=== PATIENT | female | born 1945 | race Caucasian/White ===

== ENCOUNTER 2017-03-15 17:04 | Inpatient (IN) ==
[2017-03-15] MEDS ORDERED: Ipratropium/Albuterol Neb 3 ML IH ONE (18:17)
[2017-03-15] MEDS ORDERED: methylPREDNISolone 125 MG/2 ML VIAL IVP ONE (18:18)
--- NOTE | 2017-03-15 18:20 | Emergency Department Note ---
Disposition Clinical Impression: Hospital acquired PNA, Congestive heart failure, Elevated troponin Disposition: Admitted As Inpatient Condition: Fair General Adult HPI - General Chief complaint: ED Shortness of Breath/Dyspnea Stated complaint: Pneumonia/GUSTAVO Time Seen by Provider: 03/15/17 18:15 Source: patient, family Limitations: no limitations - History of Present Illness Pain Scale: 8 - Related Data Home Medications Medication Instructions Recorded Confirmed OxyCODONE Immed Rel [Roxicodone 15 15 mg PO Q4H PRN 07/23/15 03/15/17 MG] Albuterol Sulfate [Proair Hfa] 2 puff IH Q4H PRN 03/15/17 03/15/17 Atorvastatin [Lipitor] 40 mg PO HS 03/15/17 03/15/17 Citalopram Hydrobromide [Celexa] 40 mg PO DAILY 03/15/17 03/15/17 Ergocalciferol (VITAMIN D2) 50,000 unit PO TU 03/15/17 03/15/17 [Vitamin D2] Famotidine [Heartburn Prevention] 20 mg PO HS 03/15/17 03/15/17 LORazepam [Ativan] 0.25 - 0.5 mg PO BID PRN 03/15/17 03/15/17 Levothyroxine [Synthroid] 150 mcg PO QAM 03/15/17 03/15/17 Lisinopril [Zestril] 10 mg PO DAILY 03/15/17 03/15/17 Metoprolol XL (24 HR) Succ [Toprol 25 mg PO DAILY 03/15/17 03/15/17 XL] Mometasone/Formoterol [Dulera 200 2 puff IH BID 03/15/17 03/15/17 Mcg/5 Mcg Inhaler] Mupirocin Calcium [Bactroban Nasal] 1 gm NS DAILY 03/15/17 03/15/17 Omeprazole [PriLOSEC] 40 mg PO DAILY 03/15/17 03/15/17 Oxygen 3 l NS CONT 03/15/17 03/15/17 Polyethylene Glycol 3350 [MiraLAX] 17 gm PO DAILY 03/15/17 03/15/17 hydrALAZINE [HydrALAZINE] 25 mg PO Q8HR 03/15/17 03/15/17 hydroCHLOROthiazide 25 mg PO DAILY 03/15/17 03/15/17 [Hydrochlorothiazide] Previous Rx's Medication Instructions Recorded Albuterol Neb [Proventil Neb] 2.5 mg IH Q4HR #20 inhsol 07/27/15 Budesonide/Formoterol 160/4.5 2 puff IH BIDR #1 inhaler 07/27/15 [Symbicort 160/4.5] Allergies Allergy/AdvReac Type Severity Reaction Status Date / Time aspirin Allergy Nausea Verified 03/15/17 17:45 ibuprofen Allergy Nausea Verified 03/15/17 17:45 Past Medical History - Past Medical History Medical history: Reports: arthritis, asthma, COPD, thyroid disease, TIA Surgical history: Reports: cataract, cholecystectomy Psychiatric history: Reports: depression, panic disorder - Social History Smoking Status: Current every day smoker Smokeless Tobacco Status: No Alcohol use: Reports: none Drug use: Reports: none Physical Exam - General Limitations: no limitations General appearance: alert, in no apparent distress Course Vital Signs Temperature 98.7 F 03/15/17 17:38 Pulse Rate 62 03/15/17 17:38 Respiratory Rate 18 03/15/17 17:38 Blood Pressure 145/55 03/15/17 17:38 O2 Sat by Pulse Oximetry 90 03/15/17 17:38 Temperature 98.0 F 03/16/17 06:54 Pulse Rate 64 03/16/17 06:54 Respiratory Rate 16 03/16/17 08:06 Blood Pressure 167/67 03/16/17 08:06 O2 Sat by Pulse Oximetry 92 03/16/17 09:45 Oxygen Delivery Oxygen Delivery Nasal Cannula Medical Decision Making - Lab Data Result diagrams: 03/16/17 00:51 03/16/17 00:51 Lab Results 03/15/17 03/15/17 03/15/17 Range/Units 19:04 19:04 19:04 WBC 9.6 (4.3-11.1) K/mcL RBC 4.02 (3.82-4.97) M/mcL Hgb 12.4 (11.5-15.4) g/dL Hct 38.1 (35.3-44.9) % MCV 94.8 (83.0-100.0) fL MCH 30.8 (28.0-33.3) pg MCHC 32.5 (31.6-35.5) g/dL RDW 13.3 (11.5-14.5) % Plt Count 174 (140-400) K/mcL MPV 9.9 (9.4-12.4) fL Immature Gran % 4.2 H (0-4) % Seg Neutrophils % 87.1 % Lymphocytes % 5.5 % Monocytes % 2.8 % Eosinophils % 0.0 % Basophils % 0.4 % Neutrophils # 8.4 (1.6-8.9) K/mcL Lymphocytes # 0.5 L (0.6-4.6) K/mcL Monocytes # 0.3 (0.0-1.3) K/mcL Eosinophils # 0.0 (0.0-0.6) K/mcL Basophils # 0.0 (0.0-0.2) K/mcL Nucleated RBCs/100 WBC 0.2 H (0) /100 WBC Immature Plt Fraction (1.1-6.1) % PT (9.4-12.1) Seconds INR APTT (26.0-36.0) Seconds Sodium (136-145) mEq/L Potassium (3.5-4.5) mEq/L Chloride (98-109) mEq/L Carbon Dioxide (19-29) mEq/L BUN (7-20) mg/dL Creatinine (0.57-1.11) mg/dL Est GFR ( Amer) (> 60) Est GFR (Non-Af Amer) (> 60) BUN/Creatinine Ratio (6-26) Glucose (70-99) mg/dL Est Mean Plasma Glucose mg/dl Hemoglobin A1c ( - 5.6) % Calculated Osmolality (280-300) Lactic Acid 0.9 (0.5-2.2) mmol/L Calcium (8.6-10.8) mg/dL Phosphorus (2.3-4.7) mg/dL Magnesium (1.6-2.6) mg/dL Total Bilirubin (0.2-1.2) mg/dL AST (5-34) Units/L ALT (0-55) Units/L Alkaline Phosphatase (38-126) Units/L Troponin I 0.04 H* (0-0.03) ng/mL B-Natriuretic Peptide (0-100) pg/mL Serum Total Protein (6.0-8.3) g/dL Albumin (3.5-5.0) g/dL Globulin (2.4-3.5) g/dL Albumin/Globulin Ratio (1.1-2.2) Urine Color (Yellow) Urine Clarity (Clear) Urine pH (5.0-8.0) pH Units Ur Specific Yancey (1.010-1.025) Urine Protein (Neg-Trace) mg/dL Urine Glucose (UA) (Normal) mg/dL Urine Ketones (Negative) mg/dL Urine Blood (Negative) Urine Nitrite (Negative) Urine Bilirubin (Negative) Urine Urobilinogen (Normal) mg/dL Ur Leukocyte Esterase (Negative) Urine Microscopic RBC (0-3) per hpf Urine Microscopic WBC (0-3) per hpf Ur Squamous Epith Cells (None-Few) per lpf Urine Bacteria (None-Few) per hpf Hyaline Casts (None-Few) per lpf Ur Culture Indicated? (NO) Specimen Rejected 03/15/17 03/15/17 03/15/17 Range/Units 19:04 19:04 19:32 WBC (4.3-11.1) K/mcL RBC (3.82-4.97) M/mcL Hgb (11.5-15.4) g/dL Hct (35.3-44.9) % MCV (83.0-100.0) fL MCH (28.0-33.3) pg MCHC (31.6-35.5) g/dL RDW (11.5-14.5) % Plt Count (140-400) K/mcL MPV (9.4-12.4) fL Immature Gran % (0-4) % Seg Neutrophils % % Lymphocytes % % Monocytes % % Eosinophils % % Basophils % % Neutrophils # (1.6-8.9) K/mcL Lymphocytes # (0.6-4.6) K/mcL Monocytes # (0.0-1.3) K/mcL Eosinophils # (0.0-0.6) K/mcL Basophils # (0.0-0.2) K/mcL Nucleated RBCs/100 WBC (0) /100 WBC Immature Plt Fraction (1.1-6.1) % PT (9.4-12.1) Seconds INR APTT (26.0-36.0) Seconds Sodium 133 L (136-145) mEq/L Potassium 4.6 H (3.5-4.5) mEq/L Chloride 91 L (98-109) mEq/L Carbon Dioxide 35 H (19-29) mEq/L BUN 21 H (7-20) mg/dL Creatinine 0.91 (0.57-1.11) mg/dL Est GFR ( Amer) > 60 (> 60) Est GFR (Non-Af Amer) > 60 (> 60) BUN/Creatinine Ratio 23 (6-26) Glucose 345 H (70-99) mg/dL Est Mean Plasma Glucose mg/dl Hemoglobin A1c ( - 5.6) % Calculated Osmolality 293 (280-300) Lactic Acid (0.5-2.2) mmol/L Calcium 9.5 (8.6-10.8) mg/dL Phosphorus (2.3-4.7) mg/dL Magnesium (1.6-2.6) mg/dL Total Bilirubin (0.2-1.2) mg/dL AST (5-34) Units/L ALT (0-55) Units/L Alkaline Phosphatase (38-126) Units/L Troponin I (0-0.03) ng/mL B-Natriuretic Peptide 938 H (0-100) pg/mL Serum Total Protein (6.0-8.3) g/dL Albumin (3.5-5.0) g/dL Globulin (2.4-3.5) g/dL Albumin/Globulin Ratio (1.1-2.2) Urine Color (Yellow) Urine Clarity (Clear) Urine pH (5.0-8.0) pH Units Ur Specific Yancey (1.010-1.025) Urine Protein (Neg-Trace) mg/dL Urine Glucose (UA) (Normal) mg/dL Urine Ketones (Negative) mg/dL Urine Blood (Negative) Urine Nitrite (Negative) Urine Bilirubin (Negative) Urine Urobilinogen (Normal) mg/dL Ur Leukocyte Esterase (Negative) Urine Microscopic RBC (0-3) per hpf Urine Microscopic WBC (0-3) per hpf Ur Squamous Epith Cells (None-Few) per lpf Urine Bacteria (None-Few) per hpf Hyaline Casts (None-Few) per lpf Ur Culture Indicated? (NO) Specimen Rejected Hemolyzed 03/15/17 03/15/17 03/16/17 Range/Units 19:32 21:07 00:51 WBC (4.3-11.1) K/mcL RBC (3.82-4.97) M/mcL Hgb (11.5-15.4) g/dL Hct (35.3-44.9) % MCV (83.0-100.0) fL MCH (28.0-33.3) pg MCHC (31.6-35.5) g/dL RDW (11.5-14.5) % Plt Count (140-400) K/mcL MPV (9.4-12.4) fL Immature Gran % (0-4) % Seg Neutrophils % % Lymphocytes % % Monocytes % % Eosinophils % % Basophils % % Neutrophils # (1.6-8.9) K/mcL Lymphocytes # (0.6-4.6) K/mcL Monocytes # (0.0-1.3) K/mcL Eosinophils # (0.0-0.6) K/mcL Basophils # (0.0-0.2) K/mcL Nucleated RBCs/100 WBC (0) /100 WBC Immature Plt Fraction (1.1-6.1) % PT 10.8 (9.4-12.1) Seconds INR 1.0 APTT 21.7 L (26.0-36.0) Seconds Sodium (136-145) mEq/L Potassium (3.5-4.5) mEq/L Chloride (98-109) mEq/L Carbon Dioxide (19-29) mEq/L BUN (7-20) mg/dL Creatinine (0.57-1.11) mg/dL Est GFR ( Amer) (> 60) Est GFR (Non-Af Amer) (> 60) BUN/Creatinine Ratio (6-26) Glucose (70-99) mg/dL Est Mean Plasma Glucose mg/dl Hemoglobin A1c ( - 5.6) % Calculated Osmolality (280-300) Lactic Acid (0.5-2.2) mmol/L Calcium (8.6-10.8) mg/dL Phosphorus 2.8 (2.3-4.7) mg/dL Magnesium 1.6 (1.6-2.6) mg/dL Total Bilirubin (0.2-1.2) mg/dL AST (5-34) Units/L ALT (0-55) Units/L Alkaline Phosphatase (38-126) Units/L Troponin I (0-0.03) ng/mL B-Natriuretic Peptide (0-100) pg/mL Serum Total Protein (6.0-8.3) g/dL Albumin (3.5-5.0) g/dL Globulin (2.4-3.5) g/dL Albumin/Globulin Ratio (1.1-2.2) Urine Color Yellow (Yellow) Urine Clarity Clear (Clear) Urine pH 6.0 (5.0-8.0) pH Units Ur Specific Yancey 1.020 (1.010-1.025) Urine Protein Negative (Neg-Trace) mg/dL Urine Glucose (UA) 500 H (Normal) mg/dL Urine Ketones Negative (Negative) mg/dL Urine Blood Negative (Negative) Urine Nitrite Negative (Negative) Urine Bilirubin Negative (Negative) Urine Urobilinogen Normal (Normal) mg/dL Ur Leukocyte Esterase Negative (Negative) Urine Microscopic RBC 0-3 (0-3) per hpf Urine Microscopic WBC 0-3 (0-3) per hpf Ur Squamous Epith Cells Many H (None-Few) per lpf Urine Bacteria None Seen (None-Few) per hpf Hyaline Casts None Seen (None-Few) per lpf Ur Culture Indicated? NO (NO) Specimen Rejected 03/16/17 03/16/17 03/16/17 Range/Units 00:51 00:51 00:51 WBC 9.1 (4.3-11.1) K/mcL RBC 3.65 L (3.82-4.97) M/mcL Hgb 11.3 L (11.5-15.4) g/dL Hct 34.3 L (35.3-44.9) % MCV 94.0 (83.0-100.0) fL MCH 31.0 (28.0-33.3) pg MCHC 32.9 (31.6-35.5) g/dL RDW 13.4 (11.5-14.5) % Plt Count 172 (140-400) K/mcL MPV 10.0 (9.4-12.4) fL Immature Gran % 3.1 (0-4) % Seg Neutrophils % 91.8 % Lymphocytes % 2.9 % Monocytes % 2.0 % Eosinophils % 0.0 % Basophils % 0.2 % Neutrophils # 8.3 (1.6-8.9) K/mcL Lymphocytes # 0.3 L (0.6-4.6) K/mcL Monocytes # 0.2 (0.0-1.3) K/mcL Eosinophils # 0.0 (0.0-0.6) K/mcL Basophils # 0.0 (0.0-0.2) K/mcL Nucleated RBCs/100 WBC (0) /100 WBC Immature Plt Fraction 5.0 (1.1-6.1) % PT (9.4-12.1) Seconds INR APTT (26.0-36.0) Seconds Sodium 131 L (136-145) mEq/L Potassium 4.3 (3.5-4.5) mEq/L Chloride 86 L (98-109) mEq/L Carbon Dioxide 36 H (19-29) mEq/L BUN 22 H (7-20) mg/dL Creatinine 1.15 H (0.57-1.11) mg/dL Est GFR ( Amer) 56 L (> 60) Est GFR (Non-Af Amer) 46 L (> 60) BUN/Creatinine Ratio 19 (6-26) Glucose 447 H (70-99) mg/dL Est Mean Plasma Glucose mg/dl Hemoglobin A1c ( - 5.6) % Calculated Osmolality 295 (280-300) Lactic Acid (0.5-2.2) mmol/L Calcium 9.2 (8.6-10.8) mg/dL Phosphorus (2.3-4.7) mg/dL Magnesium (1.6-2.6) mg/dL Total Bilirubin 0.3 (0.2-1.2) mg/dL AST 7 (5-34) Units/L ALT 13 (0-55) Units/L Alkaline Phosphatase 86 (38-126) Units/L Troponin I 0.03 (0-0.03) ng/mL B-Natriuretic Peptide (0-100) pg/mL Serum Total Protein 5.9 L (6.0-8.3) g/dL Albumin 2.9 L (3.5-5.0) g/dL Globulin 3.0 (2.4-3.5) g/dL Albumin/Globulin Ratio 1.0 L (1.1-2.2) Urine Color (Yellow) Urine Clarity (Clear) Urine pH (5.0-8.0) pH Units Ur Specific Y[place]y (1.010-1.025) Urine Protein (Neg-Trace) mg/dL Urine Glucose (UA) (Normal) mg/dL Urine Ketones (Negative) mg/dL Urine Blood (Negative) Urine Nitrite (Negative) Urine Bilirubin (Negative) Urine Urobilinogen (Normal) mg/dL Ur Leukocyte Esterase (Negative) Urine Microscopic RBC (0-3) per hpf Urine Microscopic WBC (0-3) per hpf Ur Squamous Epith Cells (None-Few) per lpf Urine Bacteria (None-Few) per hpf Hyaline Casts (None-Few) per lpf Ur Culture Indicated? (NO) Specimen Rejected 03/16/17 Range/Units 00:51 WBC (4.3-11.1) K/mcL RBC (3.82-4.97) M/mcL Hgb (11.5-15.4) g/dL Hct (35.3-44.9) % MCV (83.0-100.0) fL MCH (28.0-33.3) pg MCHC (31.6-35.5) g/dL RDW (11.5-14.5) % Plt Count (140-400) K/mcL MPV (9.4-12.4) fL Immature Gran % (0-4) % Seg Neutrophils % % Lymphocytes % % Monocytes % % Eosinophils % % Basophils % % Neutrophils # (1.6-8.9) K/mcL Lymphocytes # (0.6-4.6) K/mcL Monocytes # (0.0-1.3) K/mcL Eosinophils # (0.0-0.6) K/mcL Basophils # (0.0-0.2) K/mcL Nucleated RBCs/100 WBC (0) /100 WBC Immature Plt Fraction (1.1-6.1) % PT (9.4-12.1) Seconds INR APTT (26.0-36.0) Seconds Sodium (136-145) mEq/L Potassium (3.5-4.5) mEq/L Chloride (98-109) mEq/L Carbon Dioxide (19-29) mEq/L BUN (7-20) mg/dL Creatinine (0.57-1.11) mg/dL Est GFR ( Amer) (> 60) Est GFR (Non-Af Amer) (> 60) BUN/Creatinine Ratio (6-26) Glucose (70-99) mg/dL Est Mean Plasma Glucose 157 mg/dl Hemoglobin A1c 7.1 H ( - 5.6) % Calculated Osmolality (280-300) Lactic Acid (0.5-2.2) mmol/L Calcium (8.6-10.8) mg/dL Phosphorus (2.3-4.7) mg/dL Magnesium (1.6-2.6) mg/dL Total Bilirubin (0.2-1.2) mg/dL AST (5-34) Units/L ALT (0-55) Units/L Alkaline Phosphatase (38-126) Units/L Troponin I (0-0.03) ng/mL B-Natriuretic Peptide (0-100) pg/mL Serum Total Protein (6.0-8.3) g/dL Albumin (3.5-5.0) g/dL Globulin (2.4-3.5) g/dL Albumin/Globulin Ratio (1.1-2.2) Urine Color (Yellow) Urine Clarity (Clear) Urine pH (5.0-8.0) pH Units Ur Specific Yancey (1.010-1.025) Urine Protein (Neg-Trace) mg/dL Urine Glucose (UA) (Normal) mg/dL Urine Ketones (Negative) mg/dL Urine Blood (Negative) Urine Nitrite (Negative) Urine Bilirubin (Negative) Urine Urobilinogen (Normal) mg/dL Ur Leukocyte Esterase (Negative) Urine Microscopic RBC (0-3) per hpf Urine Microscopic WBC (0-3) per hpf Ur Squamous Epith Cells (None-Few) per lpf Urine Bacteria (None-Few) per hpf Hyaline Casts (None-Few) per lpf Ur Culture Indicated? (NO) Specimen Rejected Attestation Statement - Attestation Attestation: I examined this patient and my medical decision-making was reviewed with the Resident Physician. I agree with the documented findings, disposition and treatment plan as described except to the extent set forth below. [id number] time provided Patient arrives complaining of dyspnea. She has a history of oxygen dependent COPD. She is mildly dyspneic on exam. Workup initiated Care to be endorsed to the oncoming physician Dr. Eid at 7 PM pending labs, chest x-ray, reevaluate
--- NOTE | 2017-03-15 18:40 | Emergency Department Note ---
Disposition Clinical Impression: Hospital acquired PNA Disposition: Still a Patient Forms: ED Satisfaction Letter General Adult HPI - General Chief complaint: ED Shortness of Breath/Dyspnea Stated complaint: Pneumonia/GUSTAVO Time Seen by Provider: 03/15/17 18:15 Source: patient, family Limitations: no limitations Nursing Notes Reviewed: Yes Vital Signs Reviewed: Yes - History of Present Illness HPI Narrative: 71-year-old female presents to the emergency department with she thinks a COPD exacerbation or pneumonia. Patient was recently admitted for pneumonia and was sent home on Cipro. She was told by her primary care provider to come to the emergency department as he felt as if she was failing outpatient management. He recommended that we admit her for further management of her pneumonia. Pain Scale: 8 - Related Data Home Medications Medication Instructions Recorded Confirmed Escitalopram [Lexapro] 20 mg PO DAILY 07/23/15 07/23/15 Levothyroxine [Synthroid] 175 mcg PO DAILY 07/23/15 07/23/15 OxyCODONE Immed Rel [Roxicodone 15 15 mg PO Q6HR 07/23/15 07/23/15 MG] Ranitidine HCl [Zantac] 150 mg PO BID 07/23/15 07/23/15 Previous Rx's Medication Instructions Recorded Albuterol Neb [Proventil Neb] 2.5 mg IH Q4HR #20 inhsol 07/27/15 Albuterol Sulfate [Proair Hfa] 1 - 2 puff IH Q4H #1 hfa.aer.ad 07/27/15 Budesonide/Formoterol 160/4.5 2 puff IH BIDR #1 inhaler 07/27/15 [Symbicort 160/4.5] Tiotropium [Spiriva] 18 mcg IH DAILY #1 inh 07/27/15 levoFLOXacin [Levaquin] 500 mg PO DAILY #4 tablet 07/27/15 predniSONE [PredniSONE] 10 mg PO DAILY #21 tablet 07/27/15 Allergies Allergy/AdvReac Type Severity Reaction Status Date / Time aspirin Allergy Nausea Verified 03/15/17 17:45 ibuprofen Allergy Nausea Verified 03/15/17 17:45 Past Medical History - Past Medical History Medical history: Reports: arthritis, asthma, COPD, thyroid disease, TIA Surgical history: Reports: cataract, cholecystectomy Psychiatric history: Reports: depression, panic disorder - Social History Smoking Status: Current every day smoker Smokeless Tobacco Status: No Alcohol use: Reports: none Drug use: Reports: none Physical Exam - General Limitations: no limitations General appearance: alert, in no apparent distress Course Course Narrative: 71-year-old female with past medical history of COPD presents to the emergency department with shortness of breath, cough, differences sputum production. At this time, we are not providing this patient with 3 DuoNeb, 125 of Solu-Medrol, obtaining chest x-ray, electrocardiogram, troponin, CBC. Patient is currently 90% on 3 L of oxygen. Chest x-ray that was obtained and revealed a right lower lobe pneumonia and a small right pleural effusion. We have started this patient on IV vancomycin, Zosyn, ciprofloxacin. Chest X-Ray 03/15/17 17:46 IMPRESSION: Suspected right lower lobe pneumonia, superimposed on moderate emphysema. Small right pleural effusion. Radiographic follow-up recommended to assure resolution Chronic pulmonary artery hypertension D/ / Sal Ardon MD / Sal Ardon MD Interpreting Provider: Sal Ardon MD Vital Signs Temperature 98.7 F 03/15/17 17:38 Pulse Rate 62 03/15/17 17:38 Respiratory Rate 18 03/15/17 17:38 Blood Pressure 145/55 03/15/17 17:38 O2 Sat by Pulse Oximetry 90 03/15/17 17:38 Temperature 98.7 F 03/15/17 17:38 Pulse Rate 62 03/15/17 17:38 Respiratory Rate 18 03/15/17 17:38 Blood Pressure 145/55 03/15/17 17:38 O2 Sat by Pulse Oximetry 90 03/15/17 17:38 Oxygen Delivery Oxygen Delivery Nasal Cannula Vital Signs Temperature 98.7 F 03/15/17 17:38 Pulse Rate 62 03/15/17 17:38 Respiratory Rate 18 03/15/17 17:38 Blood Pressure 145/55 03/15/17 17:38 O2 Sat by Pulse Oximetry 90 03/15/17 17:38 Temperature 98.7 F 03/15/17 17:38 Pulse Rate 64 03/15/17 18:34 Respiratory Rate 18 03/15/17 18:34 Blood Pressure 136/70 03/15/17 18:34 O2 Sat by Pulse Oximetry 99 03/15/17 18:34 Oxygen Delivery Oxygen Delivery Aerosol Mask Medical Decision Making - Lab Data Result diagrams: 03/15/17 19:04 03/15/17 19:32 Lab Results 03/15/17 03/15/17 03/15/17 Range/Units 19:04 19:04 19:04 WBC 9.6 (4.3-11.1) K/mcL RBC 4.02 (3.82-4.97) M/mcL Hgb 12.4 (11.5-15.4) g/dL Hct 38.1 (35.3-44.9) % MCV 94.8 (83.0-100.0) fL MCH 30.8 (28.0-33.3) pg MCHC 32.5 (31.6-35.5) g/dL RDW 13.3 (11.5-14.5) % Plt Count 174 (140-400) K/mcL MPV 9.9 (9.4-12.4) fL Immature Gran % 4.2 H (0-4) % Seg Neutrophils % 87.1 % Lymphocytes % 5.5 % Monocytes % 2.8 % Eosinophils % 0.0 % Basophils % 0.4 % Neutrophils # 8.4 (1.6-8.9) K/mcL Lymphocytes # 0.5 L (0.6-4.6) K/mcL Monocytes # 0.3 (0.0-1.3) K/mcL Eosinophils # 0.0 (0.0-0.6) K/mcL Basophils # 0.0 (0.0-0.2) K/mcL Nucleated RBCs/100 WBC 0.2 H (0) /100 WBC Sodium (136-145) mEq/L Potassium (3.5-4.5) mEq/L Chloride (98-109) mEq/L Carbon Dioxide (19-29) mEq/L BUN (7-20) mg/dL Creatinine (0.57-1.11) mg/dL Est GFR ( Amer) (> 60) Est GFR (Non-Af Amer) (> 60) BUN/Creatinine Ratio (6-26) Glucose (70-99) mg/dL Calculated Osmolality (280-300) Lactic Acid 0.9 (0.5-2.2) mmol/L Calcium (8.6-10.8) mg/dL Troponin I 0.04 H* (0-0.03) ng/mL B-Natriuretic Peptide (0-100) pg/mL Specimen Rejected 03/15/17 03/15/17 03/15/17 Range/Units 19:04 19:04 19:32 WBC (4.3-11.1) K/mcL RBC (3.82-4.97) M/mcL Hgb (11.5-15.4) g/dL Hct (35.3-44.9) % MCV (83.0-100.0) fL MCH (28.0-33.3) pg MCHC (31.6-35.5) g/dL RDW (11.5-14.5) % Plt Count (140-400) K/mcL MPV (9.4-12.4) fL Immature Gran % (0-4) % Seg Neutrophils % % Lymphocytes % % Monocytes % % Eosinophils % % Basophils % % Neutrophils # (1.6-8.9) K/mcL Lymphocytes # (0.6-4.6) K/mcL Monocytes # (0.0-1.3) K/mcL Eosinophils # (0.0-0.6) K/mcL Basophils # (0.0-0.2) K/mcL Nucleated RBCs/100 WBC (0) /100 WBC Sodium 133 L (136-145) mEq/L Potassium 4.6 H (3.5-4.5) mEq/L Chloride 91 L (98-109) mEq/L Carbon Dioxide 35 H (19-29) mEq/L BUN 21 H (7-20) mg/dL Creatinine 0.91 (0.57-1.11) mg/dL Est GFR ( Amer) > 60 (> 60) Est GFR (Non-Af Amer) > 60 (> 60) BUN/Creatinine Ratio 23 (6-26) Glucose 345 H (70-99) mg/dL Calculated Osmolality 293 (280-300) Lactic Acid (0.5-2.2) mmol/L Calcium 9.5 (8.6-10.8) mg/dL Troponin I (0-0.03) ng/mL B-Natriuretic Peptide 938 H (0-100) pg/mL Specimen Rejected Hemolyzed S.B.A.R. - S.B.A.R. S.B.A.R. Report Given to: Dr. Ragini Martínez Repor Time: 18:58
[2017-03-15] MEDS ORDERED: Vancomycin 1,250 MG in D5% in Water 250 ML IVPB ONE (18:42)
[2017-03-15] MEDS ORDERED: Piperacillin/Tazobactam 4.5 GM in D5% in Water (Mini-Bag+) 100 ML IVPB ONE (18:44)
[2017-03-15 19:14] LABS: Basophils % 0.4 %; Hematocrit 38.1 % (35.3-44.9); Hemoglobin 12.4 g/dL (11.5-15.4); Immature Granulocytes % 4.2 % (0-4); Lymphocytes # 0.5 K/mcL (0.6-4.6); Lymphocytes % 5.5 %; Mean Corpuscular HGB Conc 32.5 g/dL (31.6-35.5); Mean Corpuscular Hemoglobin 30.8 pg (28.0-33.3); Mean Corpuscular Volume 94.8 fL (83.0-100.0); Mean Platelet Volume 9.9 fL (9.4-12.4); Monocytes # 0.3 K/mcL (0.0-1.3); Monocytes % 2.8 %; Neutrophils # 8.4 K/mcL (1.6-8.9); Nucleated Red Blood Cells 0.2 /100 WBC (0); Platelet Count 174 K/mcL (140-400); Red Blood Count 4.02 M/mcL (3.82-4.97); Red Cell Distribution Width 13.3 % (11.5-14.5); Segmented Neutrophils % 87.1 %
[2017-03-15 19:49] LABS: BUN/Creatinine Ratio 23 (6-26); Blood Urea Nitrogen 21 mg/dL (7-20); Calcium 9.5 mg/dL (8.6-10.8); Carbon Dioxide 35 mEq/L (19-29); Chloride 91 mEq/L (98-109); Glucose 345 mg/dL (70-99); Osmolality,Calculated 293 (280-300); Potassium 4.6 mEq/L (3.5-4.5); Sodium 133 mEq/L (136-145); eGFR For African Americans > 60 (> 60); eGFR For Non-African Americans > 60 (> 60)
[2017-03-15] MEDS ORDERED: Aspirin 325 MG TABLET PO ONE (20:28)
--- NOTE | 2017-03-15 21:12 | Emergency Department Note ---
Disposition Clinical Impression: Hospital acquired PNA, Congestive heart failure, Elevated troponin Disposition: Admitted As Inpatient Condition: Fair Time of Disposition: 21:11 SOB HPI - General Chief Complaint: ED Shortness of Breath/Dyspnea Stated Complaint: Pneumonia/GUSTAVO Time Seen by Provider: 03/15/17 18:15 Source: patient, family Limitations: no limitations Nursing Notes Reviewed: Yes Vital Signs Reviewed: Yes - Related Data Home Medications Medication Instructions Recorded Confirmed Escitalopram [Lexapro] 20 mg PO DAILY 07/23/15 07/23/15 Levothyroxine [Synthroid] 175 mcg PO DAILY 07/23/15 07/23/15 OxyCODONE Immed Rel [Roxicodone 15 15 mg PO Q6HR 07/23/15 07/23/15 MG] Ranitidine HCl [Zantac] 150 mg PO BID 07/23/15 07/23/15 Previous Rx's Medication Instructions Recorded Albuterol Neb [Proventil Neb] 2.5 mg IH Q4HR #20 inhsol 07/27/15 Albuterol Sulfate [Proair Hfa] 1 - 2 puff IH Q4H #1 hfa.aer.ad 07/27/15 Budesonide/Formoterol 160/4.5 2 puff IH BIDR #1 inhaler 07/27/15 [Symbicort 160/4.5] Tiotropium [Spiriva] 18 mcg IH DAILY #1 inh 07/27/15 levoFLOXacin [Levaquin] 500 mg PO DAILY #4 tablet 07/27/15 predniSONE [PredniSONE] 10 mg PO DAILY #21 tablet 07/27/15 Allergies Allergy/AdvReac Type Severity Reaction Status Date / Time aspirin Allergy Nausea Verified 03/15/17 17:45 ibuprofen Allergy Nausea Verified 03/15/17 17:45 Past Medical History - Past Medical History Medical history: Reports: arthritis, asthma, COPD, thyroid disease, TIA Surgical history: Reports: cataract, cholecystectomy Psychiatric history: Reports: depression, panic disorder - Social History Smoking Status: Current every day smoker Smokeless Tobacco Status: No Alcohol use: Reports: none Drug use: Reports: none Physical Exam - General Limitations: no limitations General appearance: alert, in no apparent distress Course - Reevaluation(s) Reevaluation #1: Patient signed out from the daytime team pending lab results. Patient will be admitted for recurrent pneumonia and failed outpatient treatment. Does have a newly elevated BNP and troponin. Patient given aspirin. Patient also has a history of paroxysmal A. fib. Patient in no acute distress at this time. Vital signs are currently stable. Time: 21:09 Vital Signs Temperature 98.7 F 03/15/17 17:38 Pulse Rate 62 03/15/17 17:38 Respiratory Rate 18 03/15/17 17:38 Blood Pressure 145/55 03/15/17 17:38 O2 Sat by Pulse Oximetry 90 03/15/17 17:38 Temperature 98.7 F 03/15/17 17:38 Pulse Rate 66 03/15/17 20:43 Respiratory Rate 14 03/15/17 20:43 Blood Pressure 144/75 03/15/17 20:43 O2 Sat by Pulse Oximetry 94 03/15/17 20:43 Oxygen Delivery Oxygen Delivery Nasal Cannula Shortness of Breath/Dyspnea - Medical Records Medical records reviewed: Yes I reviewed the patient's medical records. - Lab Data Lab results reviewed: Yes I reviewed the patient's lab results. Result diagrams: 03/15/17 19:04 03/15/17 19:32 Lab Results 03/15/17 03/15/17 03/15/17 Range/Units 19:04 19:04 19:04 WBC 9.6 (4.3-11.1) K/mcL RBC 4.02 (3.82-4.97) M/mcL Hgb 12.4 (11.5-15.4) g/dL Hct 38.1 (35.3-44.9) % MCV 94.8 (83.0-100.0) fL MCH 30.8 (28.0-33.3) pg MCHC 32.5 (31.6-35.5) g/dL RDW 13.3 (11.5-14.5) % Plt Count 174 (140-400) K/mcL MPV 9.9 (9.4-12.4) fL Immature Gran % 4.2 H (0-4) % Seg Neutrophils % 87.1 % Lymphocytes % 5.5 % Monocytes % 2.8 % Eosinophils % 0.0 % Basophils % 0.4 % Neutrophils # 8.4 (1.6-8.9) K/mcL Lymphocytes # 0.5 L (0.6-4.6) K/mcL Monocytes # 0.3 (0.0-1.3) K/mcL Eosinophils # 0.0 (0.0-0.6) K/mcL Basophils # 0.0 (0.0-0.2) K/mcL Nucleated RBCs/100 WBC 0.2 H (0) /100 WBC Sodium (136-145) mEq/L Potassium (3.5-4.5) mEq/L Chloride (98-109) mEq/L Carbon Dioxide (19-29) mEq/L BUN (7-20) mg/dL Creatinine (0.57-1.11) mg/dL Est GFR ( Amer) (> 60) Est GFR (Non-Af Amer) (> 60) BUN/Creatinine Ratio (6-26) Glucose (70-99) mg/dL Calculated Osmolality (280-300) Lactic Acid 0.9 (0.5-2.2) mmol/L Calcium (8.6-10.8) mg/dL Troponin I 0.04 H* (0-0.03) ng/mL B-Natriuretic Peptide (0-100) pg/mL Specimen Rejected 03/15/17 03/15/17 03/15/17 Range/Units 19:04 19:04 19:32 WBC (4.3-11.1) K/mcL RBC (3.82-4.97) M/mcL Hgb (11.5-15.4) g/dL Hct (35.3-44.9) % MCV (83.0-100.0) fL MCH (28.0-33.3) pg MCHC (31.6-35.5) g/dL RDW (11.5-14.5) % Plt Count (140-400) K/mcL MPV (9.4-12.4) fL Immature Gran % (0-4) % Seg Neutrophils % % Lymphocytes % % Monocytes % % Eosinophils % % Basophils % % Neutrophils # (1.6-8.9) K/mcL Lymphocytes # (0.6-4.6) K/mcL Monocytes # (0.0-1.3) K/mcL Eosinophils # (0.0-0.6) K/mcL Basophils # (0.0-0.2) K/mcL Nucleated RBCs/100 WBC (0) /100 WBC Sodium 133 L (136-145) mEq/L Potassium 4.6 H (3.5-4.5) mEq/L Chloride 91 L (98-109) mEq/L Carbon Dioxide 35 H (19-29) mEq/L BUN 21 H (7-20) mg/dL Creatinine 0.91 (0.57-1.11) mg/dL Est GFR ( Amer) > 60 (> 60) Est GFR (Non-Af Amer) > 60 (> 60) BUN/Creatinine Ratio 23 (6-26) Glucose 345 H (70-99) mg/dL Calculated Osmolality 293 (280-300) Lactic Acid (0.5-2.2) mmol/L Calcium 9.5 (8.6-10.8) mg/dL Troponin I (0-0.03) ng/mL B-Natriuretic Peptide 938 H (0-100) pg/mL Specimen Rejected Hemolyzed - Radiology Data Radiology results reviewed: Yes I reviewed the patient's radiology results. Chest X-Ray 03/15/17 17:46 IMPRESSION: Suspected right lower lobe pneumonia, superimposed on moderate emphysema. Small right pleural effusion. Radiographic follow-up recommended to assure resolution Chronic pulmonary artery hypertension. D/ / 03/15/2017 19:10:51 Sal Ardon MD / bcarter Interpreting Provider: Sal Ardon MD - EKG Data EKG attestation: Yes I reviewed and interpreted this EKG. EKG results narrative: A. fib, rate 64, QRS 94, QTC 418, normal axis, no acute ischemic changes. S.B.A.R. - S.B.A.R. Situation: Demographics, MOA Background: Presenting Complaint, Relevant PMH, Meds, & Allergies Assessment: Vital Signs, Course and respsone to treatment, Exam Concerns, Patient/Family Expectation, Pertinant Lab Results, Outstanding Labs Recommendation: Barrier(s) to disposition, Recommendation based on pending studies, treatments, or consults S.B.A.RKimo Report Given to: Dr.Omar Martínez Repor Time: 21:11 Attestation Statement - Attestation Attestation: I examined this patient and my medical decision-making was reviewed with the Resident Physician, Dr. Carrillo. I agree with the documented findings, disposition and treatment plan as described except to the extent set forth below. Patient is a 71-year-old white female with a history of COPD who was signed out to us by [facility] team after their initial assessment. There are working diagnosis at the time of sign out was that the patient had a COPD exacerbation as well as recurrent pneumonia who came in in mild respiratory distress with some hypoxia on her baseline O2. They had already initiated IV antibiotics for hospital-acquired pneumonia as the patient was recently admitted for pneumonia. Assessment patient is still having it inspir/exp wheezing on auscultation and is room air satting at 90% on 3 L nasal cannula which is her home O2 level. I agree with patient's physical exam findings as documented. Patient's EKG was interpreted in the chart and without ischemia. CXR does show right lower lobe pneumonia. Also trace pleural effusion on that same side. Patient's lab results show an elevated BUN as well as an elevated troponin with baseline serum creatinine function. Patient denies any chest pain heaviness or pressure sensation in the ED. Patient will be admitted for acute exacerbation of COPD with hypoxia, right lower lobe pneumonia, elevated troponin. Case was discussed with the hospitalist who accepted patient for admission.
[2017-03-15] MEDS ORDERED: Furosemide 40 MG/4 ML VIAL IVP ONE (21:23)
--- NOTE | 2017-03-15 22:13 | Internal Med History&Physical ---
Date of Encounter: 03/16/17 Time of Encounter: 22:13 Assessment and Plan (1) Hospital acquired PNA Current visit: Yes Status: Acute Recurrent PNA CXR reveals suspected right lower lobe pneumonia, superimposed on moderate emphysema. Small right pleural effusion. She was started on Vancomycin, Zosyn, and Ciprofloxacin in the ED Continue empiric Vancomycin and Zosyn Blood and sputum cultures pending Continue Duonebs and incentive spirometry (2) Failure of outpatient treatment Current visit: Yes Status: Acute Patient recently treated for PNA with Doxycycline and Cipro. She was sent to the ED by her PCP for failure of outpatient management. (3) Acute exacerbation of chronic obstructive pulmonary disease (COPD) Current visit: No Status: Acute Continue Solumedrol, antibiotics, and Duonebs (4) Chronic respiratory failure with hypoxia Current visit: No Status: Chronic 3L home O2 dependence at baseline Patient reports wearing CPAP at night Will continue CPAP qhs (5) Congestive heart failure Current visit: Yes Status: Acute Echo 07/26/15 reveals EF 60% BNP 938, rales on exam CXR reveals small right pleural effusion and chronic pulmonary artery hypertension. Cardiac diet Fluid restriction 1500cc/day Lasix 40mg IV daily Qualifiers: Congestive heart failure type: diastolic Congestive heart failure chronicity: acute on chronic Qualified Code(s): I50.33 - Acute on chronic diastolic (congestive) heart failure (6) Elevated troponin Current visit: Yes Status: Acute Initial troponin 0.04 --> 0.03, likely demand ischemia from PNA, AECOPD, and CHF EKG shows no signs of ischemia Trend serial troponins (7) Paroxysmal a-fib Current visit: Yes Status: Chronic EKG shows A-fib with HR 64 CHADS-VASc Score 6 Patient currently not on home anticoagualtion Patient reported recently stopping Warfarin due to increased falls PT/OT consulted (8) History of TIA (transient ischemic attack) Current visit: Yes Status: Chronic Continue to monitor (9) HTN (hypertension) Current visit: Yes Status: Chronic Continue home meds Qualifiers: Hypertension type: unspecified Qualified Code(s): I10 - Essential (primary ) hypertension (10) HLD (hyperlipidemia) Current visit: Yes Status: Chronic Continue home meds Qualifiers: Hyperlipidemia type: unspecified Qualified Code(s): E78.5 - Hyperlipidemia , unspecified (11) Hypothyroidism Current visit: Yes Status: Chronic Continue home meds Qualifiers: Hypothyroidism type: unspecified Qualified Code(s): E03.9 - Hypothyroidism , unspecified (12) Tobacco abuse Current visit: No Status: Chronic Tobacco cessation discussed Nicotine patch ordered (13) DVT prophylaxis Current visit: Yes Status: Acute Heparin subq TID Internal Medicine - H&P: HPI Chief complaint: SOB Admitted From: Home Plans for Post Hospital Care: Home History of present illness: Ms. Shook is a 71 year old female with a PMH of oxygen dependent COPD, CHF, paroxysmal A-fib, TIA, and tobacco dependence that was recently treated for PNA at multiple facilities in the past 1.5 weeks that was sent to the ED by her PCP for failure of outpatient management. She was admitted for PNA treatment at [facility] form 03/04-03/06, at [facility] from 03/10-03/13, and evaluated and discharged at [facility] ED this afternoon before presenting to [facility] ED this evening. Patient reported shortness of breath, cough, and increased sputum production since most recent discharge on 03/13/17. Patient is a very poor historian and unable to give much information about HPI. According to records, she usually requires 3L home O2 at baseline and has been on Doxycycline and Prednisone taper since discharge. She is still having inspir/exp wheezing on auscultation and was satting at 90% on 3 L nasal cannula in the ED. She reports recently stopping Warfarin secondary to repeat falls at home and reports wearing CPAP at night. In the ED, Chest x-ray revealed right lower lobe pneumonia and a small right pleural effusion. She was started on Vancomycin, Zosyn, and Clindamycin in the ED. Past Med Surg Social Fam HX - Past Medical History Medical history: arthritis, asthma, CHF, COPD, hyperlipidemia, hypertension, thyroid disease, TIA Psychiatric history: depression, panic disorder - Past Surgical History Surgical History: cataract, cholecystectomy - Social History Smoking Status: Current every day smoker Smokeless Tobacco Status: No Alcohol use: none Drug use: none - Family History Mother Living Status: Age at : 82 Hx Family Cardiac Disorders: Yes Father Living Status: Age at : 77 Hx Family Endocrine Disorder: Yes (DM) Internal Medicine - H&P: Meds OxyCODONE Immed Rel [Roxicodone 15 MG] 15 mg PO Q4H PRN 07/23/15 [History] Albuterol Neb [Proventil Neb] 2.5 mg IH Q4HR #20 inhsol 07/27/15 [Rx] Budesonide/Formoterol 160/4.5 [Symbicort 160/4.5] 2 puff IH BIDR #1 inhaler [Rx] Albuterol Sulfate [Proair Hfa] 2 puff IH Q4H PRN 03/15/17 [History] Atorvastatin [Lipitor] 40 mg PO HS 03/15/17 [History] Citalopram Hydrobromide [Celexa] 40 mg PO DAILY 03/15/17 [History] Ergocalciferol (VITAMIN D2) [Vitamin D2] 50,000 unit PO TU 03/15/17 [History] Famotidine [Heartburn Prevention] 20 mg PO HS 03/15/17 [History] LORazepam [Ativan] 0.25 - 0.5 mg PO BID PRN 03/15/17 [History] Levothyroxine [Synthroid] 150 mcg PO QAM 03/15/17 [History] Lisinopril [Zestril] 10 mg PO DAILY 03/15/17 [History] Metoprolol XL (24 HR) Succ [Toprol XL] 25 mg PO DAILY 03/15/17 [History] Mometasone/Formoterol [Dulera 200 Mcg/5 Mcg Inhaler] 2 puff IH BID 03/15/17 [ History] Mupirocin Calcium [Bactroban Nasal] 1 gm NS DAILY 03/15/17 [History] Omeprazole [PriLOSEC] 40 mg PO DAILY 03/15/17 [History] Oxygen 3 l NS CONT 03/15/17 [History] Polyethylene Glycol 3350 [MiraLAX] 17 gm PO DAILY 03/15/17 [History] hydrALAZINE [HydrALAZINE] 25 mg PO Q8HR 03/15/17 [History] hydroCHLOROthiazide [Hydrochlorothiazide] 25 mg PO DAILY 03/15/17 [History] 3 Allergy/AdvReac Type Severity Reaction Status Date / Time aspirin Allergy Nausea Verified 03/15/17 17:45 ibuprofen Allergy Nausea Verified 03/15/17 17:45 All Systems PM: A 10-system review of systems was performed and is negative for pertinent findings except as documented above in the HPI. - Constitutional Constitutional: fatigue, lethargy, weakness, no anorexia, no chills, no fever(s) , no weight gain, no weight loss - EENT Nose, mouth and throat: nasal congestion, sinus pressure, no sore throat - Cardiovascular Cardiovascular ROS IM: dyspnea, orthopnea, no chest pain, no edema, no palpitations - Respiratory Respiratory: cough, dyspnea, wheezing, chest congestion, excessive phlegm production, change in phlegm color - Gastrointestinal Gastrointestinal: no abdominal pain, no bloating, no constipation, no cramping, no diarrhea, no hematemesis, no hematochezia, no melena, no nausea, no vomiting - Genitourinary Genitourinary: no dysuria, no urinary frequency, no urinary urgency - Musculoskeletal Musculoskeletal ROS IM: no back pain, no numbness, no tingling - Integumentary Integumentary IM: no erythema, no skin ulcer - Neurological Neurological ROS: weakness, no dizziness, no numbness, no tingling - Psychiatric Psychiatric: confusion, no anxiety, no depression - Endocrine Endocrine IM: no polydipsia, no polyphagia, no polyuria - Constitutional Vitals: Temp Pulse Resp BP Pulse Ox 98.7 F 66 16 164/64 94 03/15/17 17:38 03/15/17 20:43 03/15/17 21:46 03/15/17 21:46 03/15/17 20:43 General appearance: Present: cooperative, A&O X 3, pleasant, no acute distress, answers questions appropriately - Head Head exam: Present: atraumatic, normal inspection, normocephalic - Eye Eye exam: Present: EOMI, PERRL - ENT ENT exam: Present: mucous membranes moist, normal oropharynx - Neck Neck exam general surgery: Present: lymphadenopathy, supple. Absent: tenderness - Respiratory Respiratory exam: Present: decreased breath sounds, rales, wheezes. Absent: accessory muscle use, CTAB, respiratory distress - Cardiovascular Cardiovascular exam: Present: RRR, +S1, +S2 - GI/Abdominal GI/Abdominal exam: Present: normal bowel sounds, soft. Absent: distended, guarding, rebound, tenderness - Extremities Exam Extremities exam: Present: warm. Absent: pedal edema - Back Exam Back exam: Present: normal inspection. Absent: paraspinal tenderness, tenderness - Neurological Exam Neurological exam: Present: alert, oriented X3, no focal deficits, strengths equal and symetr throughout, speech deficit - Psychiatric Psychiatric exam: Present: flat affect, normal mood Additional comments: slow to respond to questions - Skin Skin exam: Present: dry, normal color, warm Internal Med - H&P Results - Labs CBC & Chem 7: 03/16/17 00:51 03/16/17 00:51 - EKG Data -: EKG Interpreted by Myself Rate: tachycardia (A-fib, rate 64, QRS 94, QTC 418, normal axis, no acute ischemic changes.) - Impressions Impressions Chest X-Ray 03/15/17 17:46 IMPRESSION: Suspected right lower lobe pneumonia, superimposed on moderate emphysema. Small right pleural effusion. Radiographic follow-up recommended to assure resolution Chronic pulmonary artery hypertension. D/ / 03/15/2017 19:10:51 Sal Ardon MD / santino Interpreting Provider: Sal Ardon MD
[2017-03-15 22:24] LABS: Bilirubin,Urine Negative (Negative); Blood,Urine Negative (Negative); Clarity,Urine Clear (Clear); Color,Urine Yellow (Yellow); Glucose,Urine (UA) 500 mg/dL (Normal); Ketones,Urine Negative (Negative); Leukocyte Esterase,Urine Negative (Negative); Nitrite,Urine Negative (Negative); Protein,Urine Negative (Neg-Trace); Urobilinogen,Urine Normal (Normal)
[2017-03-15 22:25] LABS: Bacteria,Urine None Seen per hpf (None-Few); Hyaline Casts,Urine None Seen per lpf (None-Few); RBC,Urine 0-3 per hpf (0-3); Squamous Epithelial Cell,Urine Many per lpf (None-Few); WBC,Urine 0-3 per hpf (0-3)
[2017-03-15] MEDS ORDERED: Acetaminophen 325 MG TABLET PO PRN (22:39)
[2017-03-15] MEDS ORDERED: Naloxone 0.4 MG/ML INJ IVP PRN (22:39)
[2017-03-15] MEDS ORDERED: *HR* Promethazine 25 MG/ML VIAL IVP PRN (22:39)
[2017-03-15] MEDS ORDERED: Ondansetron 4 MG/2 ML VIAL IVP PRN (22:39)
[2017-03-15] MEDS ORDERED: *HR* LORazepam 0.5 MG TABLET PO PRN (22:43)
[2017-03-15] MEDS ORDERED: Vancomycin (wt based) 1,000 MG VIAL IVPB SCH (23:00)
[2017-03-15 23:13] LABS: Magnesium 1.6 mg/dL (1.6-2.6); Phosphorous 2.8 mg/dL (2.3-4.7)
[2017-03-15] MEDS: Ipratropium/Albuterol Neb 3 ML IH SCH (23:54)
[2017-03-16 00:59] LABS: Basophils % 0.2 %; Hematocrit 34.3 % (35.3-44.9); Hemoglobin 11.3 g/dL (11.5-15.4); Immature Granulocytes % 3.1 % (0-4); Lymphocytes # 0.3 K/mcL (0.6-4.6); Lymphocytes % 2.9 %; Mean Corpuscular HGB Conc 32.9 g/dL (31.6-35.5); Monocytes # 0.2 K/mcL (0.0-1.3); Neutrophils # 8.3 K/mcL (1.6-8.9); Platelet Count 172 K/mcL (140-400); Red Blood Count 3.65 M/mcL (3.82-4.97); Red Cell Distribution Width 13.4 % (11.5-14.5); Segmented Neutrophils % 91.8 %
[2017-03-16 01:08] LABS: Prothrombin Time 10.8 Seconds (9.4-12.1)
[2017-03-16 01:12] LABS: Albumin 2.9 g/dL (3.5-5.0); Bilirubin,Total 0.3 mg/dL (0.2-1.2); Calcium 9.2 mg/dL (8.6-10.8); Potassium 4.3 mEq/L (3.5-4.5); Total Protein 5.9 g/dL (6.0-8.3)
--- NOTE | 2017-03-16 01:13 | Event Note ---
Date of Encounter: 03/16/17 Time of Encounter: 01:13 Patient seen and examined with medical research assistant. Agree with assessment and plan
[2017-03-16 01:16] LABS: Activated Partial Thrombo Time 21.7 Seconds (26.0-36.0)
[2017-03-16] MEDS ORDERED: Ipratropium/Albuterol Neb 3 ML IH SCH (04:00)
[2017-03-16] MEDS: Ipratropium/Albuterol Neb 3 ML IH SCH ×6 (04:17→23:27)
[2017-03-16] MEDS: *HR* OxyCODONE Immed Rel 15 MG TABLET PO PRN ×3 (04:28→21:02)
[2017-03-16] MEDS: MethylPREDNISolone 40 MG/ML VIAL IVP SCH ×3 (04:28→19:04)
[2017-03-16] MEDS: Piperacillin/Tazobactam 3.375 GM in D5% in Water (Mini-Bag+) 100 ML IVPB SCH ×3 (04:28→20:59)
[2017-03-16] MEDS: *HR* Heparin 5,000 UNIT/ML VIAL SQ SCH ×3 (06:09→20:58)
[2017-03-16] MEDS: Vancomycin 1,250 MG in D5% in Water 250 ML IVPB SCH (06:10)
[2017-03-16] MEDS ORDERED: Furosemide 40 MG/4 ML VIAL IVP SCH (08:00)
[2017-03-16] MEDS: Budesonide/Formoterol 160/4.5 MDI IH SCH ×2 (08:09→20:20)
[2017-03-16] MEDS ORDERED: *HR* Dextrose 50 % in Water (Syg) 50 ML SYRINGE IVP PRN (09:10)
[2017-03-16] MEDS ORDERED: D5% in Water 1,000 ML IVC PRN (09:10)
[2017-03-16] MEDS ORDERED: Dextrose Gel 15 GM PO PRN ×2 (09:10)
[2017-03-16 09:32] LABS: Hemoglobin A1C 7.1 %
[2017-03-16] MEDS ORDERED: Insulin LISPRO 300 UNITS/3 ML VIAL SQ ONE (09:45)
[2017-03-16] MEDS: Furosemide 40 MG/4 ML VIAL IVP SCH (09:48)
[2017-03-16] MEDS: Metoprolol XL (24 HR) Succ 25 MG TAB.ER.24H PO SCH (09:48)
[2017-03-16] MEDS: Nicotine 14 MG PATCH.TD24 TD SCH (09:48)
--- NOTE | 2017-03-16 12:37 | Event Note ---
Date of Encounter: 03/16/17 Time of Encounter: 12:37 71-year-old female with history of CHF, paroxysmal atrial fibrillation, COPD, admitted with ongoing issues with cough, shortness of breath and wheezing. Patient reportedly has been admitted with multiple medical facilities around [place] in the last 1 month, each time treated for pneumonia and acute COPD. Patient seen and examined at bedside. Although oriented in general, patient is unable to answer certain questions including regarding her medical diagnosis. Reports improvement in shortness of breath. Chest-S1, S2 heard. Lungs with bilateral coarse breath sounds, scattered rhonchi and diffuse end expiratory wheezing. Abdomen-soft, obese and nontender Extremities-no pedal edema, no restriction in range of motion. Labs reviewed-hemoglobin A1c 7.1%, serum creatinine 1.15, BNP 938, random blood glucose 447 Acute exacerbation of COPD-continue IV steroids, empiric IV antibiotics, scheduled bronchodilators and supplemental oxygen as needed. Continue Symbicort. Continue nocturnal CPAP. Right lower lobe pneumonia-recent hospitalizations with multiple courses of antibiotics. Follow-up blood and sputum cultures, continue broad-spectrum IV antibiotics-vancomycin and Zosyn for now. Supplemental oxygen and supportive care. Mild acute exacerbation of CHF-patient noted to have bilateral mild pleural effusion on imaging along with elevated BNP. She does have a history of diastolic CHF. Will repeat echocardiogram. Continue IV Lasix, fluid restriction, urine output monitoring, beta kylie. Paroxysmal atrial fibrillation-currently rate controlled. Continue beta kylie. Patient was supposed to be on anticoagulation with Coumadin, which was recently held due to frequent falls according to the patient. Case discussed with patient's primary care provider Dr.Ellis Lal- patient is at her baseline mental status, she seems to be slightly confused at baseline. She lives with her brother in [place]. Given her multiple hospitalizations and respiratory issues, she would probably benefit from short- term rehabilitation placement following this hospitalization. She would also benefit from being on long-term anticoagulation, however noted to have frequent falls and confusion at home due to which she was taken off Coumadin. plan to resume on an outpatient basis.
[2017-03-16] MEDS: Insulin LISPRO 300 UNITS/3 ML VIAL SQ SCH ×2 (12:50→17:27)
--- NOTE | 2017-03-16 15:33 | Electrocardiograph Report ---
[place] [address] Test Date: 2017-03-15 Pat Name: Tess Shook Department: 104 Room: 3A43 Gender: F Pediatric Psychiatrist: SURI : 1945 Requested By: Jonathan Moy Order Number: [id number] Reading MD: Donovan Khan Measurements Intervals [place] Rate: 64 P: GA: 0 QRS: 74 QRSD: 94 T: 86 QT: 408 QTc: 418 Interpretive Statements SINUS RHYTHM INCOMPLETE RIGHT BUNDLE BRANCH BLOCK NONSPECIFIC T-WAVE ABNORMALITY ABNORMAL RHYTHM ECG Electronically Signed On 03-16-2017 15:32:12 EDT by Donovan Khan
[2017-03-16] MEDS ORDERED: Insulin LISPRO 300 UNITS/3 ML VIAL SQ SCH (21:00)
[2017-03-16] MEDS: hydrALAZINE 25 MG TABLET PO SCH (23:59)
[2017-03-17] MEDS: Ipratropium/Albuterol Neb 3 ML IH SCH ×5 (04:11→20:03)
[2017-03-17] MEDS: *HR* OxyCODONE Immed Rel 15 MG TABLET PO PRN ×3 (04:23→20:18)
[2017-03-17] MEDS: MethylPREDNISolone 40 MG/ML VIAL IVP SCH ×2 (04:24→12:05)
[2017-03-17] MEDS: Piperacillin/Tazobactam 3.375 GM in D5% in Water (Mini-Bag+) 100 ML IVPB SCH ×3 (04:26→20:25)
[2017-03-17 05:36] LABS: Basophils % 0.2 %; Hematocrit 32.6 % (35.3-44.9); Hemoglobin 10.8 g/dL (11.5-15.4); Immature Granulocytes % 3.5 % (0-4); Lymphocytes # 0.6 K/mcL (0.6-4.6); Lymphocytes % 6.2 %; Mean Corpuscular HGB Conc 33.1 g/dL (31.6-35.5); Mean Corpuscular Hemoglobin 30.7 pg (28.0-33.3); Mean Corpuscular Volume 92.6 fL (83.0-100.0); Mean Platelet Volume 10.1 fL (9.4-12.4); Monocytes # 0.2 K/mcL (0.0-1.3); Monocytes % 2.7 %; Neutrophils # 7.8 K/mcL (1.6-8.9); Nucleated Red Blood Cells 0.2 /100 WBC (0); Platelet Count 145 K/mcL (140-400); Red Blood Count 3.52 M/mcL (3.82-4.97); Red Cell Distribution Width 13.3 % (11.5-14.5); Segmented Neutrophils % 87.4 %
[2017-03-17 05:49] LABS: Calcium 9.3 mg/dL (8.6-10.8); Magnesium 1.5 mg/dL (1.6-2.6); Potassium 4.3 mEq/L (3.5-4.5)
[2017-03-17] MEDS: *HR* Heparin 5,000 UNIT/ML VIAL SQ SCH ×3 (06:00→20:21)
[2017-03-17] MEDS: Vancomycin 1,250 MG in D5% in Water 250 ML IVPB SCH (06:13)
[2017-03-17 06:21] LABS: ABG Base Excess 16 mEq/L (-2 to 3); ABG HCO3 43 mEq/L (21-27); ABG Oxygen Saturation 95 % (95-98); ABG PCO2 63 mmHg (35-45); ABG PH 7.44 pH Units (7.32-7.45); ABG PO2 77 mmHg (85-104); ABG TCO2 45 mEq/L (20-26); Blood Gas Modality NCPAP
[2017-03-17] MEDS: Budesonide/Formoterol 160/4.5 MDI IH SCH ×2 (07:57→20:03)
[2017-03-17] MEDS: Metoprolol XL (24 HR) Succ 25 MG TAB.ER.24H PO SCH (08:21)
[2017-03-17] MEDS: hydrALAZINE 25 MG TABLET PO SCH ×3 (08:21→23:39)
[2017-03-17] MEDS: Furosemide 40 MG/4 ML VIAL IVP SCH (08:21)
[2017-03-17] MEDS: Nicotine 14 MG PATCH.TD24 TD SCH (08:22)
[2017-03-17] MEDS: Insulin LISPRO 300 UNITS/3 ML VIAL SQ SCH ×3 (08:23→16:16)
[2017-03-17] MEDS: Insulin DETEMIR 100 UNIT/ML X5UNITS SQ SCH ×2 (10:24→20:21)
[2017-03-17] MEDS ORDERED: Magnesium Sulfate 2 GM in D5% in Water 100 ML IVPB ONE (12:30)
--- NOTE | 2017-03-17 12:33 | Internal Med Progress Note ---
Date of Encounter: 03/17/17 Time of Encounter: 11:45 - Assessment and plan (1) Acute exacerbation of chronic obstructive pulmonary disease (COPD) Current Visit: Yes Status: Acute Assessment and plan: Continues to have wheezing, at baseline O2 requirements. Continue IV steroids, empiric IV antibiotics, scheduled bronchodilators, ICS/LABA. Supplemental O2 and nocturnal CPAP. ABG reviewed- pCO2 63, pO2 77, compensated pH. Patient is noted to be slightly confused with poor insight into medical conditions, at baseline. Physical and occupational therapy evaluation. Patient will benefit from rehabilitation placement. (2) Tobacco abuse Current Visit: Yes Status: Chronic Assessment and plan: continue Nicotine transdermal patch as needed. (3) Chronic respiratory failure with hypoxia Current Visit: Yes Status: Chronic Assessment and plan: due to underlying COPD. (4) Hospital acquired PNA Current Visit: Yes Status: Acute Assessment and plan: Patient has had multiple recent hospitalizations with similar complaints. Continue IV vancomycin and Zosyn and follow-up blood cultures. Patient unable to provide sputum sample. Supportive care and supplemental oxygen. (5) Congestive heart failure Current Visit: Yes Status: Chronic Assessment and plan: Patient is noted to have elevated serum creatinine along with contraction alkalosis. Noted to have appropriate urine output. Echocardiogram reviewed- preserved ejection fraction, mild left ventricular diastolic dysfunction, mild pulmonary hypertension. We will change diuretics to oral Lasix and continue fluid restriction, urine output monitoring. Continue beta kylie. Qualifiers: Congestive heart failure type: diastolic Congestive heart failure chronicity: acute on chronic Qualified Code(s): I50.33 - Acute on chronic diastolic (congestive) heart failure (6) Hypothyroidism Current Visit: Yes Status: Chronic Assessment and plan: Resume levothyroxine. Qualifiers: Hypothyroidism type: unspecified Qualified Code(s): E03.9 - Hypothyroidism , unspecified (7) HTN (hypertension) Current Visit: Yes Status: Chronic Assessment and plan: Blood pressure noted to be well controlled. Continue home medications. Qualifiers: Hypertension type: unspecified Qualified Code(s): I10 - Essential (primary ) hypertension (8) HLD (hyperlipidemia) Current Visit: Yes Status: Chronic Qualifiers: Hyperlipidemia type: unspecified Qualified Code(s): E78.5 - Hyperlipidemia , unspecified (9) Paroxysmal a-fib Current Visit: Yes Status: Chronic Assessment and plan: Currently rate controlled. Continue beta kylie. Patient was supposed to be on anticoagulation with Coumadin, taken off it due to recurrent falls. Case discussed with patient's primary care provider-, plan for outpatient initiation of Coumadin. - Subjective Interval history: Reports no new complaints; no chest pain, continues to have intermittent cough, shortness of breath. No fever/chills. - Constitutional Vitals: Temp Pulse Resp BP Pulse Ox 98.4 F 80 19 133/56 91 03/17/17 10:25 03/17/17 10:25 03/17/17 10:25 03/17/17 10:25 03/17/17 10:25 General appearance: Present: cooperative, A&O X 3, answers questions appropriately - Respiratory Respiratory exam: Present: decreased breath sounds (decreased air entry B/L), wheezes (diffuse end expiratory wheezing B/L). Absent: accessory muscle use, rales, rhonchi - Cardiovascular Cardiovascular exam: Present: RRR, +S1, +S2. Absent: diastolic murmur, gallop, rubs, systolic murmur - GI/Abdominal GI/Abdominal exam: Present: normal bowel sounds, soft, no peritoneal signs. Absent: distended, tenderness - Extremities Exam Extremities exam: Present: warm, radial pulses palpable and symmetrical. Absent : calf tenderness, cyanotic, pedal edema - Neurological Exam Neurological exam: Present: CN II-XII intact, oriented X3, no focal deficits. Absent: pronater drift, facial droop, speech deficit Internal Medicine: Result - Labs CBC & Chem 7: 03/17/17 05:29 03/17/17 05:29 Labs: Short CBC 03/17/17 Range/Units 05:29 WBC 8.9 (4.3-11.1) K/mcL Hgb 10.8 L (11.5-15.4) g/dL Hct 32.6 L (35.3-44.9) % Plt Count 145 (140-400) K/mcL Neutrophils # 7.8 (1.6-8.9) K/mcL BMP 03/17/17 05:29 Sodium 134 L Potassium 4.3 Chloride 85 L Carbon Dioxide 40 H* BUN 33 H D Creatinine 1.13 H Glucose 339 H Calcium 9.3 Cardiac Enzymes 03/16/17 Range/Units 12:47 Troponin I 0.02 (0-0.03) ng/mL - ABG Interpretation ABG results: ABG ABG pH 7.44 pH Units (7.32-7.45) 03/17/17 06:17 ABG pCO2 63 mmHg (35-45) H 03/17/17 06:17 ABG pO2 77 mmHg (85-104) L 03/17/17 06:17 ABG O2 Saturation 95 % (95-98) 03/17/17 06:17 PT/INR, D-dimer PT 10.8 Seconds (9.4-12.1) 03/16/17 00:51 - Impressions Impressions Echocardiogram 03/16/17 11:59 Impressions: LVEF 55-60%. Normal LV chamber size, wall thickness and function. Mild left ventricular diastolic dysfunction. Normal right ventricular structure and function. Mild pulmonary hypertension. No significant valvular dysfunction. Left Ventricular Wall Motion: Rest Echo Findings All wall segments showed normal motion. Findings: Study Quality * Technically adequate exam. ECG Findings * Normal sinus rhythm. Left Ventricle * LVEF 55-60%. * Normal LV chamber size, wall thickness and function. * Mild left ventricular diastolic dysfunction. Right Ventricle * Normal right ventricular structure and function. Left Atrium * Moderately dilated left atrium. Right Atrium * Mildly dilated right atrium. Aortic Valve * Trileaflet aortic valve with normal function. * No aortic regurgitation. * No aortic stenosis. Mitral Valve * Normal mitral valve structure and function. * No mitral stenosis. * No mitral regurgitation. Tricuspid Valve * Normal tricuspid valve structure and function. * Trace tricuspid regurgitation. * Mild pulmonary hypertension. Pulmonic Valve * Normal pulmonic valve structure and function. * Trace pulmonic regurgitation. Aorta * Normally sized aortic root. Pericardium * The pericardium appears normal. IVC * Normal IVC dimensions and inspiratory collapse. Pulmonary Artery * Normal visualized portions of the main pulmonary artery. Consult Discharge Plan - Plan Referrals: Michelet Lal MD [Primary Care Provider] -
[2017-03-17] MEDS: methylPREDNISolone 125 MG/2 ML VIAL IVP SCH ×2 (16:15→23:38)
[2017-03-17] MEDS ORDERED: Vancomycin 1,250 MG in D5% in Water 250 ML IVPB SCH ×2 (18:00→23:00)
[2017-03-17] MEDS ORDERED: Insulin LISPRO 300 UNITS/3 ML VIAL SQ SCH (21:00)
[2017-03-18] MEDS: Ipratropium/Albuterol Neb 3 ML IH SCH ×7 (01:01→23:30)
[2017-03-18] MEDS: *HR* OxyCODONE Immed Rel 15 MG TABLET PO PRN ×4 (01:19→20:48)
[2017-03-18 05:34] LABS: BUN/Creatinine Ratio 28 (6-26); Blood Urea Nitrogen 30 mg/dL (7-20); Calcium 9.3 mg/dL (8.6-10.8); Chloride 84 mEq/L (98-109); Glucose 324 mg/dL (70-99); Magnesium 2.2 mg/dL (1.6-2.6); Osmolality,Calculated 293 (280-300); Sodium 132 mEq/L (136-145); eGFR For African Americans > 60 (> 60); eGFR For Non-African Americans 50 (> 60)
[2017-03-18 05:42] LABS: Potassium 4.7 mEq/L (3.5-4.5)
[2017-03-18 05:48] LABS: Carbon Dioxide 41 mEq/L (19-29)
[2017-03-18] MEDS: hydrALAZINE 25 MG TABLET PO SCH ×3 (06:06→23:33)
[2017-03-18] MEDS: *HR* Heparin 5,000 UNIT/ML VIAL SQ SCH ×3 (06:07→20:48)
[2017-03-18] MEDS: Piperacillin/Tazobactam 3.375 GM in D5% in Water (Mini-Bag+) 100 ML IVPB SCH ×3 (06:44→20:48)
[2017-03-18] MEDS: Budesonide/Formoterol 160/4.5 MDI IH SCH ×2 (08:07→19:40)
[2017-03-18] MEDS: methylPREDNISolone 125 MG/2 ML VIAL IVP SCH (08:20)
[2017-03-18] MEDS: Metoprolol XL (24 HR) Succ 25 MG TAB.ER.24H PO SCH (08:20)
[2017-03-18] MEDS: Nicotine 14 MG PATCH.TD24 TD SCH (08:20)
[2017-03-18] MEDS: Furosemide 40 MG TABLET PO SCH (08:20)
[2017-03-18] MEDS: Insulin LISPRO 300 UNITS/3 ML VIAL SQ SCH ×4 (08:21→20:47)
[2017-03-18] MEDS ORDERED: Aminoglycoside Consult 1 EACH MC ONE (08:54)
[2017-03-18] MEDS: Insulin DETEMIR 100 UNIT/ML X5UNITS SQ SCH ×3 (11:57→22:19)
--- NOTE | 2017-03-18 12:16 | Internal Med Progress Note ---
Date of Encounter: 03/18/17 Time of Encounter: 12:14 - Assessment and plan (1) Acute exacerbation of chronic obstructive pulmonary disease (COPD) Current Visit: Yes Status: Acute Assessment and plan: improving. at baseline O2 requirements. Continue IV steroids, taper as tolerated. Continue empiric IV antibiotics, scheduled bronchodilators, ICS/ LABA. Supplemental O2 and nocturnal CPAP- patient refuses CPAP. Physical and occupational therapy evaluation noted, recommend ECF placement. business services associate consulted. (2) Tobacco abuse Current Visit: Yes Status: Chronic Assessment and plan: continue Nicotine transdermal patch as needed. (3) Chronic respiratory failure with hypoxia Current Visit: Yes Status: Chronic Assessment and plan: due to underlying COPD. (4) Hospital acquired PNA Current Visit: Yes Status: Acute Assessment and plan: Improving. Continue IV Zosyn and hold Vancomycin. Blood cultures remain negative , urine Legionella and Strep pneumo Ag negative. Patient unable to provide sputum sample. Supportive care and supplemental oxygen. (5) Congestive heart failure Current Visit: Yes Status: Chronic Assessment and plan: Noted to have appropriate urine output. Echocardiogram reviewed-preserved ejection fraction, mild left ventricular diastolic dysfunction, mild pulmonary hypertension. cONTINUE oral Lasix and continue fluid restriction, urine output monitoring. Continue beta kylie. Qualifiers: Congestive heart failure type: diastolic Congestive heart failure chronicity: acute on chronic Qualified Code(s): I50.33 - Acute on chronic diastolic (congestive) heart failure (6) Hypothyroidism Current Visit: Yes Status: Chronic Assessment and plan: Resume levothyroxine. Qualifiers: Hypothyroidism type: unspecified Qualified Code(s): E03.9 - Hypothyroidism , unspecified (7) HTN (hypertension) Current Visit: Yes Status: Chronic Qualifiers: Hypertension type: unspecified Qualified Code(s): I10 - Essential (primary ) hypertension (8) HLD (hyperlipidemia) Current Visit: Yes Status: Chronic Qualifiers: Hyperlipidemia type: unspecified Qualified Code(s): E78.5 - Hyperlipidemia , unspecified (9) Paroxysmal a-fib Current Visit: Yes Status: Chronic Assessment and plan: Currently rate controlled. Continue beta kylie. Patient was supposed to be on anticoagulation with Coumadin, taken off it due to recurrent falls. Case discussed with patient's primary care provider-, plan for outpatient initiation of Coumadin. (10) Diabetes mellitus Current Visit: Yes Status: Chronic Assessment and plan: New diagnosis. Noted to have steroid-induced hyperglycemia. HbA1C 7.1%. Blood sugars continue to be elevated- will increase basal and bolus insulin dosage. Continue Accucheck blood glucose monitoring. Diabetic diet. Qualifiers: Diabetes mellitus type: type 2 Diabetes mellitus complication status: with unspecified complications Diabetes mellitus terminal gauger supervisor insulin use: without penitentiary use Qualified Code(s): E11.8 - Type 2 diabetes mellitus with unspecified complications - Subjective Interval history: Feels better; reports heartburn; improved shortness of breath and cough. No fever/chills; able to work with PT, recommend ECF placement, patient agreeable. - Constitutional Vitals: Temp Pulse Resp BP Pulse Ox 97.6 F 58 18 148/60 97 03/18/17 11:28 03/18/17 11:28 03/18/17 11:28 03/18/17 11:28 03/18/17 11:28 General appearance: Present: cooperative, A&O X 3, answers questions appropriately - Respiratory Respiratory exam: Present: decreased breath sounds (decreased air entry B/L), CTAB, wheezes (improved wheezing). Absent: accessory muscle use, rales, rhonchi - Cardiovascular Cardiovascular exam: Present: RRR, +S1, +S2. Absent: diastolic murmur, gallop, rubs, systolic murmur - GI/Abdominal GI/Abdominal exam: Present: normal bowel sounds, soft, no peritoneal signs. Absent: distended, tenderness - Extremities Exam Extremities exam: Present: full ROM, warm, radial pulses palpable and symmetrical. Absent: calf tenderness, cyanotic, pedal edema Internal Medicine: Result - Labs CBC & Chem 7: 03/17/17 05:29 03/18/17 04:25 Labs: BMP 03/18/17 04:25 Sodium 132 L Potassium 4.7 H Chloride 84 L Carbon Dioxide 41 H* BUN 30 H Creatinine 1.07 Glucose 324 H Calcium 9.3 - ABG Interpretation ABG results: ABG ABG pH 7.44 pH Units (7.32-7.45) 03/17/17 06:17 ABG pCO2 63 mmHg (35-45) H 03/17/17 06:17 ABG pO2 77 mmHg (85-104) L 03/17/17 06:17 ABG O2 Saturation 95 % (95-98) 03/17/17 06:17 PT/INR, D-dimer PT 10.8 Seconds (9.4-12.1) 03/16/17 00:51 Consult Discharge Plan - Plan Referrals: Michelet Lal MD [Primary Care Provider] -
[2017-03-18] MEDS: MethylPREDNISolone 40 MG/ML VIAL IVP SCH ×2 (16:22→23:33)
[2017-03-19 03:49] LABS: Hematocrit 36.3 % (35.3-44.9); Hemoglobin 11.6 g/dL (11.5-15.4); Mean Corpuscular Hemoglobin 30.1 pg (28.0-33.3); Mean Corpuscular Volume 94.3 fL (83.0-100.0); Mean Platelet Volume 10.5 fL (9.4-12.4); Neutrophils # 7.6 K/mcL (1.6-8.9); Nucleated Red Blood Cells 0.2 /100 WBC (0); Platelet Count 147 K/mcL (140-400); Red Blood Count 3.85 M/mcL (3.82-4.97); Red Cell Distribution Width 13.6 % (11.5-14.5)
[2017-03-19 04:03] LABS: Calcium 9.2 mg/dL (8.6-10.8); Magnesium 2.2 mg/dL (1.6-2.6); Potassium 4.6 mEq/L (3.5-4.5)
[2017-03-19 04:29] LABS: Lymphocytes # 0.5 K/mcL (0.6-4.6); Monocytes # 0.3 K/mcL (0.0-1.3); Platelet Estimate Normal (Normal)
[2017-03-19 04:30] LABS: Polychromasia 1+ (Not Present)
[2017-03-19] MEDS: Ipratropium/Albuterol Neb 3 ML IH SCH ×6 (04:53→23:45)
[2017-03-19] MEDS: hydrALAZINE 25 MG TABLET PO SCH ×3 (05:56→23:02)
[2017-03-19] MEDS: Piperacillin/Tazobactam 3.375 GM in D5% in Water (Mini-Bag+) 100 ML IVPB SCH ×3 (05:56→20:30)
[2017-03-19] MEDS: *HR* Heparin 5,000 UNIT/ML VIAL SQ SCH ×3 (05:56→23:02)
[2017-03-19] MEDS: Budesonide/Formoterol 160/4.5 MDI IH SCH ×2 (07:55→21:27)
[2017-03-19] MEDS: MethylPREDNISolone 40 MG/ML VIAL IVP SCH ×3 (09:02→23:02)
[2017-03-19] MEDS: Metoprolol XL (24 HR) Succ 25 MG TAB.ER.24H PO SCH (09:02)
[2017-03-19] MEDS: Insulin DETEMIR 100 UNIT/ML X5UNITS SQ SCH ×2 (09:02→20:22)
[2017-03-19] MEDS: Insulin LISPRO 300 UNITS/3 ML VIAL SQ SCH ×4 (09:02→20:22)
[2017-03-19] MEDS: Furosemide 40 MG TABLET PO SCH (09:02)
[2017-03-19] MEDS: Nicotine 14 MG PATCH.TD24 TD SCH (09:02)
[2017-03-19] MEDS: *HR* OxyCODONE Immed Rel 15 MG TABLET PO PRN ×3 (09:08→23:03)
--- NOTE | 2017-03-19 10:40 | Internal Med Progress Note ---
Date of Encounter: 03/19/17 Time of Encounter: 10:39 - Assessment and plan (1) Acute exacerbation of chronic obstructive pulmonary disease (COPD) Current Visit: Yes Status: Acute Assessment and plan: improving. at baseline O2 requirements. She does have decreased breath sounds and some wheezing, probably her baseline as she has no distress or hypoxemia on home level of O2. Continue IV steroids, taper as tolerated. Continue empiric IV antibiotics, scheduled bronchodilators, ICS/LABA. Supplemental O2 and nocturnal CPAP- patient refuses CPAP. Physical and occupational therapy evaluation noted, recommend ECF placement. student services coordinator consulted. (2) Tobacco abuse Current Visit: Yes Status: Chronic Assessment and plan: continue Nicotine transdermal patch as needed. (3) Chronic respiratory failure with hypoxia Current Visit: Yes Status: Chronic (4) Hospital acquired PNA Current Visit: Yes Status: Acute Assessment and plan: Improving. Continue IV Zosyn- day 4. Blood cultures remain negative, urine Legionella and Strep pneumo Ag negative. Patient unable to provide sputum sample. Supportive care and supplemental oxygen. (5) Congestive heart failure Current Visit: Yes Status: Chronic Assessment and plan: Noted to have appropriate urine output. Echocardiogram reviewed-preserved ejection fraction, mild left ventricular diastolic dysfunction, mild pulmonary hypertension. cONTINUE oral Lasix and continue fluid restriction, urine output monitoring. Continue beta kylie. Qualifiers: Congestive heart failure type: diastolic Congestive heart failure chronicity: acute on chronic Qualified Code(s): I50.33 - Acute on chronic diastolic (congestive) heart failure (6) Hypothyroidism Current Visit: Yes Status: Chronic Assessment and plan: Resume levothyroxine. Qualifiers: Hypothyroidism type: unspecified Qualified Code(s): E03.9 - Hypothyroidism , unspecified (7) HTN (hypertension) Current Visit: Yes Status: Chronic Qualifiers: Hypertension type: unspecified Qualified Code(s): I10 - Essential (primary ) hypertension (8) HLD (hyperlipidemia) Current Visit: Yes Status: Chronic Qualifiers: Hyperlipidemia type: unspecified Qualified Code(s): E78.5 - Hyperlipidemia , unspecified (9) Paroxysmal a-fib Current Visit: Yes Status: Chronic Assessment and plan: Currently rate controlled. Continue beta kylie. Patient was supposed to be on anticoagulation with Coumadin, taken off it due to recurrent falls. Case discussed with patient's primary care provider-, plan for outpatient initiation of Coumadin. (10) Diabetes mellitus Current Visit: Yes Status: Chronic Assessment and plan: New diagnosis. Noted to have steroid-induced hyperglycemia. HbA1C 7.1%. Blood sugars improving with very few readings of hyperglycemia. Continue basal and bolus insulin coverage. Continue Accucheck blood glucose monitoring. Diabetic diet. Qualifiers: Diabetes mellitus type: type 2 Diabetes mellitus complication status: with unspecified complications Diabetes mellitus residential insulin use: without residential use Qualified Code(s): E11.8 - Type 2 diabetes mellitus with unspecified complications - Subjective Interval history: Improved heart burn; no new complaint; has persistent intermittent cough with clear mucus. No shortness of breath, palpitations, chest pain. - Constitutional Vitals: Temp Pulse Resp BP Pulse Ox 97.6 F 64 20 148/55 89 03/19/17 06:51 03/19/17 06:51 03/19/17 07:56 03/19/17 06:51 03/19/17 07:56 General appearance: Present: cooperative, A&O X 3, answers questions appropriately - Respiratory Respiratory exam: Present: decreased breath sounds, wheezes (scattered wheezing left anterior chest). Absent: accessory muscle use, rales, rhonchi - Cardiovascular Cardiovascular exam: Present: RRR, +S1, +S2. Absent: diastolic murmur, gallop, rubs, systolic murmur - GI/Abdominal GI/Abdominal exam: Present: normal bowel sounds, soft, no peritoneal signs. Absent: distended, tenderness - Extremities Exam Extremities exam: Present: full ROM, warm, radial pulses palpable and symmetrical. Absent: calf tenderness, cyanotic, pedal edema Internal Medicine: Result - Labs CBC & Chem 7: 03/19/17 03:14 03/19/17 03:14 Labs: Short CBC 03/19/17 Range/Units 03:14 WBC 8.6 (4.3-11.1) K/mcL Hgb 11.6 (11.5-15.4) g/dL Hct 36.3 (35.3-44.9) % Plt Count 147 (140-400) K/mcL Neutrophils # 7.6 (1.6-8.9) K/mcL BMP 03/19/17 03:14 Sodium 136 Potassium 4.6 H Chloride 88 L Carbon Dioxide 40 H* BUN 34 H Creatinine 1.11 Glucose 215 H Calcium 9.2 - ABG Interpretation ABG results: ABG ABG pH 7.44 pH Units (7.32-7.45) 03/17/17 06:17 ABG pCO2 63 mmHg (35-45) H 03/17/17 06:17 ABG pO2 77 mmHg (85-104) L 03/17/17 06:17 ABG O2 Saturation 95 % (95-98) 03/17/17 06:17 PT/INR, D-dimer PT 10.8 Seconds (9.4-12.1) 03/16/17 00:51 Consult Discharge Plan - Plan Referrals: Michelet Lal MD [Primary Care Provider] -
[2017-03-20] MEDS: Ipratropium/Albuterol Neb 3 ML IH SCH ×3 (04:35→11:07)
[2017-03-20] MEDS: Piperacillin/Tazobactam 3.375 GM in D5% in Water (Mini-Bag+) 100 ML IVPB SCH ×3 (05:30→22:19)
[2017-03-20] MEDS: *HR* Heparin 5,000 UNIT/ML VIAL SQ SCH ×3 (05:31→22:18)
[2017-03-20] MEDS: hydrALAZINE 25 MG TABLET PO SCH ×3 (06:09→22:19)
[2017-03-20] MEDS: Budesonide/Formoterol 160/4.5 MDI IH SCH ×2 (07:50→20:03)
[2017-03-20] MEDS: Insulin LISPRO 300 UNITS/3 ML VIAL SQ SCH ×4 (07:51→22:18)
[2017-03-20] MEDS: Nicotine 14 MG PATCH.TD24 TD SCH (08:05)
[2017-03-20] MEDS: Insulin DETEMIR 100 UNIT/ML X5UNITS SQ SCH ×2 (08:07→22:18)
[2017-03-20] MEDS: Furosemide 40 MG TABLET PO SCH (08:07)
[2017-03-20] MEDS: Metoprolol XL (24 HR) Succ 25 MG TAB.ER.24H PO SCH (08:07)
[2017-03-20] MEDS: *HR* OxyCODONE Immed Rel 15 MG TABLET PO PRN ×3 (09:10→22:18)
[2017-03-20] MEDS: MethylPREDNISolone 40 MG/ML VIAL IVP SCH (10:35)
--- NOTE | 2017-03-20 11:43 | Internal Med Progress Note ---
Date of Encounter: 03/20/17 Time of Encounter: 11:42 - Assessment and plan (1) Acute exacerbation of chronic obstructive pulmonary disease (COPD) Current Visit: Yes Status: Acute Assessment and plan: improving. at baseline O2 requirements. Improved breath sounds, minimal wheezing. We will change steroids to oral prednisone, to complete a two-week course. Change breathing treatments to every 6 hourly as needed. Continue empiric IV antibiotics, ICS/LABA. Supplemental O2 and nocturnal CPAP- patient refuses CPAP. Physical and occupational therapy evaluation noted, recommend ECF placement. manager support services consulted. Patient is medically stable for discharge. (2) Tobacco abuse Current Visit: Yes Status: Chronic Assessment and plan: continue Nicotine transdermal patch as needed. (3) Chronic respiratory failure with hypoxia Current Visit: Yes Status: Chronic (4) Hospital acquired PNA Current Visit: Yes Status: Acute Assessment and plan: Improving. Continue IV Zosyn- day 5. Blood cultures remain negative, urine Legionella and Strep pneumo Ag negative. Patient unable to provide sputum sample. Supportive care and supplemental oxygen. (5) Congestive heart failure Current Visit: Yes Status: Chronic Assessment and plan: Noted to have appropriate urine output. Echocardiogram reviewed-preserved ejection fraction, mild left ventricular diastolic dysfunction, mild pulmonary hypertension. cONTINUE oral Lasix and continue fluid restriction, urine output monitoring. Continue beta kylie. Qualifiers: Congestive heart failure type: diastolic Congestive heart failure chronicity: acute on chronic Qualified Code(s): I50.33 - Acute on chronic diastolic (congestive) heart failure (6) Hypothyroidism Current Visit: Yes Status: Chronic Qualifiers: Hypothyroidism type: unspecified Qualified Code(s): E03.9 - Hypothyroidism , unspecified (7) HTN (hypertension) Current Visit: Yes Status: Chronic Qualifiers: Hypertension type: unspecified Qualified Code(s): I10 - Essential (primary ) hypertension (8) HLD (hyperlipidemia) Current Visit: Yes Status: Chronic Qualifiers: Hyperlipidemia type: unspecified Qualified Code(s): E78.5 - Hyperlipidemia , unspecified (9) Paroxysmal a-fib Current Visit: Yes Status: Chronic (10) Diabetes mellitus Current Visit: Yes Status: Chronic Assessment and plan: New diagnosis. Noted to have steroid-induced hyperglycemia. HbA1C 7.1%. Blood sugars improving. Continue basal and bolus insulin coverage. Continue Accucheck blood glucose monitoring. Diabetic diet. Qualifiers: Diabetes mellitus type: type 2 Diabetes mellitus complication status: with unspecified complications Diabetes mellitus assisted insulin use: without world renowned chef and restaurant owner use Qualified Code(s): E11.8 - Type 2 diabetes mellitus with unspecified complications - Subjective Interval history: Feels well; no cough, fever/chills, shortness of breath; improved wheezing; - Constitutional Vitals: Temp Pulse Resp BP Pulse Ox 97.6 F 61 18 134/71 97 03/20/17 10:18 03/20/17 10:18 03/20/17 10:18 03/20/17 10:18 03/20/17 10:18 General appearance: Present: cooperative, A&O X 3, answers questions appropriately - Respiratory Respiratory exam: Present: CTAB (coarse ), wheezes (inermittent mild wheezing at left base). Absent: accessory muscle use, rales, rhonchi - Cardiovascular Cardiovascular exam: Present: RRR, +S1, +S2. Absent: diastolic murmur, gallop, rubs, systolic murmur - GI/Abdominal GI/Abdominal exam: Present: normal bowel sounds, soft, no peritoneal signs. Absent: distended, tenderness - Extremities Exam Extremities exam: Present: full ROM, warm, radial pulses palpable and symmetrical. Absent: calf tenderness, cyanotic, pedal edema Internal Medicine: Result - Labs CBC & Chem 7: 03/19/17 03:14 03/19/17 03:14 - ABG Interpretation ABG results: ABG ABG pH 7.44 pH Units (7.32-7.45) 03/17/17 06:17 ABG pCO2 63 mmHg (35-45) H 03/17/17 06:17 ABG pO2 77 mmHg (85-104) L 03/17/17 06:17 ABG O2 Saturation 95 % (95-98) 03/17/17 06:17 PT/INR, D-dimer PT 10.8 Seconds (9.4-12.1) 03/16/17 00:51 Consult Discharge Plan - Plan Referrals: Michelet Lal MD [Primary Care Provider] -
[2017-03-20] MEDS: Ipratropium/Albuterol Neb 3 ML IH PRN (20:04)
[2017-03-21] MEDS: Piperacillin/Tazobactam 3.375 GM in D5% in Water (Mini-Bag+) 100 ML IVPB SCH ×2 (04:17→12:46)
[2017-03-21] MEDS: *HR* OxyCODONE Immed Rel 15 MG TABLET PO PRN ×3 (04:20→21:55)
[2017-03-21] MEDS: *HR* Heparin 5,000 UNIT/ML VIAL SQ SCH ×3 (06:04→21:56)
[2017-03-21] MEDS: hydrALAZINE 25 MG TABLET PO SCH ×3 (06:05→21:55)
[2017-03-21] MEDS: Nicotine 14 MG PATCH.TD24 TD SCH (08:36)
[2017-03-21] MEDS: Metoprolol XL (24 HR) Succ 25 MG TAB.ER.24H PO SCH (08:37)
[2017-03-21] MEDS: Insulin DETEMIR 100 UNIT/ML X5UNITS SQ SCH ×2 (08:37→21:55)
[2017-03-21] MEDS: Furosemide 40 MG TABLET PO SCH (08:37)
[2017-03-21] MEDS: Insulin LISPRO 300 UNITS/3 ML VIAL SQ SCH ×2 (08:38→11:57)
[2017-03-21] MEDS ORDERED: predniSONE 20 MG TABLET PO SCH ×2 (09:00→12:49)
[2017-03-21] MEDS: Ipratropium/Albuterol Neb 3 ML IH PRN ×3 (10:53→21:34)
[2017-03-21] MEDS: Budesonide/Formoterol 160/4.5 MDI IH SCH ×2 (10:53→21:34)
--- NOTE | 2017-03-21 15:26 | Internal Med Progress Note ---
Date of Encounter: 03/21/17 Time of Encounter: 15:23 - Assessment and plan (1) Acute exacerbation of chronic obstructive pulmonary disease (COPD) Current Visit: Yes Status: Acute Assessment and plan: improving. at baseline O2 requirements. Started tapering prednisone, to complete a two-week course Cont bronchodilators. Changed abx ti PO Augmentin Supplemental O2 Physical and occupational therapy evaluation noted, recommend ECF placement. SW is working on it. Patient is medically stable for discharge. (2) Tobacco abuse Current Visit: Yes Status: Chronic Assessment and plan: counseled to quit smoking, continue Nicotine transdermal patch as needed. (3) Chronic respiratory failure with hypoxia Current Visit: Yes Status: Chronic Assessment and plan: due to underlying COPD. (4) Hospital acquired PNA Current Visit: Yes Status: Acute Assessment and plan: Improving. Blood cultures remain negative, urine Legionella and Strep pneumo Ag negative. switched to PO Augmentin. Supportive care and supplemental oxygen. (5) Hypothyroidism Current Visit: Yes Status: Chronic Assessment and plan: Resume levothyroxine. Qualifiers: Hypothyroidism type: unspecified Qualified Code(s): E03.9 - Hypothyroidism , unspecified (6) HTN (hypertension) Current Visit: Yes Status: Chronic Assessment and plan: Blood pressure noted to be well controlled. Continue home medications. Qualifiers: Hypertension type: unspecified Qualified Code(s): I10 - Essential (primary ) hypertension (7) Paroxysmal a-fib Current Visit: Yes Status: Chronic Assessment and plan: Currently rate controlled. Continue beta kylie. Patient was supposed to be on anticoagulation with Coumadin, taken off it due to recurrent falls. Case discussed with patient's primary care provider-, plan for outpatient initiation of Coumadin. (8) Diabetes mellitus Current Visit: Yes Status: Chronic Assessment and plan: New diagnosis. Noted to have steroid-induced hyperglycemia. However HbA1C 7.1. Blood sugars improving. Continue basal and bolus insulin coverage. d/c ISS Started on PO Metformin Qualifiers: Diabetes mellitus type: type 2 Diabetes mellitus complication status: with unspecified complications Diabetes mellitus residential insulin use: without residential use Qualified Code(s): E11.8 - Type 2 diabetes mellitus with unspecified complications - Subjective Interval history: Ms. Shook is a 71 year old female with a PMH of oxygen dependent COPD, CHF, paroxysmal A-fib, TIA, and tobacco dependence that was recently treated for PNA at multiple facilities in the past 1.5 weeks that was sent to the ED by her PCP for failure of outpatient management. She was admitted for PNA treatment at [facility] form 03/04-03/06, at [facility] from 03/10-03/13, and evaluated and discharged at [facility]. Pt was aditted here and started her on empirical abx Zosyn and high dose IV steroids. Her symptoms started improving slowly. Today she is alert, awake and O x3 . Breathing keller seems to be back to baseline. - Constitutional Vitals: Temp Pulse Resp BP Pulse Ox 97.9 F 65 18 135/64 95 03/21/17 14:16 03/21/17 14:16 03/21/17 14:16 03/21/17 14:16 03/21/17 14:16 General appearance: Present: cooperative, A&O X 3, answers questions appropriately - Head Head exam: Present: atraumatic, normal inspection - Respiratory Respiratory exam: Present: decreased breath sounds, wheezes (moderate). Absent : rales, respiratory distress, rhonchi - Cardiovascular Cardiovascular exam: Present: RRR, +S1, +S2. Absent: diastolic murmur, gallop, rubs, systolic murmur - GI/Abdominal GI/Abdominal exam: Present: normal bowel sounds, soft. Absent: rebound, rigid - Extremities Exam Extremities exam: Absent: calf tenderness, pedal edema, tenderness - Back Exam Back exam: Absent: CVA tenderness (L), CVA tenderness (R) - Neurological Exam Neurological exam: Present: alert, oriented X3 - Psychiatric Psychiatric exam: Present: normal affect, normal mood Internal Medicine: Result - Labs CBC & Chem 7: 03/19/17 03:14 03/19/17 03:14 - ABG Interpretation ABG results: ABG ABG pH 7.44 pH Units (7.32-7.45) 03/17/17 06:17 ABG pCO2 63 mmHg (35-45) H 03/17/17 06:17 ABG pO2 77 mmHg (85-104) L 03/17/17 06:17 ABG O2 Saturation 95 % (95-98) 03/17/17 06:17 PT/INR, D-dimer PT 10.8 Seconds (9.4-12.1) 03/16/17 00:51 Consult Discharge Plan - Plan Referrals: Michelet Lal MD [Primary Care Provider] -
[2017-03-21] MEDS: *HR* Metformin 500 MG TABLET PO SCH (17:06)
[2017-03-22] MEDS: *HR* OxyCODONE Immed Rel 15 MG TABLET PO PRN ×3 (03:37→16:03)
[2017-03-22] MEDS: hydrALAZINE 25 MG TABLET PO SCH ×2 (06:09→14:16)
[2017-03-22] MEDS: *HR* Heparin 5,000 UNIT/ML VIAL SQ SCH ×2 (06:10→14:16)
[2017-03-22] MEDS: Furosemide 40 MG TABLET PO SCH (09:12)
[2017-03-22] MEDS: Metoprolol XL (24 HR) Succ 25 MG TAB.ER.24H PO SCH (09:12)
[2017-03-22] MEDS: *HR* Metformin 500 MG TABLET PO SCH ×2 (09:13→16:03)
[2017-03-22] MEDS: Nicotine 14 MG PATCH.TD24 TD SCH (09:14)
[2017-03-22] MEDS: Insulin DETEMIR 100 UNIT/ML X5UNITS SQ SCH (09:15)
[2017-03-22] MEDS: Budesonide/Formoterol 160/4.5 MDI IH SCH (10:33)
[2017-03-22] MEDS: Ipratropium/Albuterol Neb 3 ML IH PRN (10:39)
--- NOTE | 2017-03-22 11:24 | Discharge Summary ---
Date of Encounter: 03/22/17 Time of Encounter: 11:21 - Discharge Diagnosis (1) Hospital acquired PNA Priority: Primary Status: Acute (2) Acute exacerbation of chronic obstructive pulmonary disease (COPD) Priority: Primary Status: Acute (3) Tobacco abuse Priority: Secondary Status: Chronic (4) Chronic respiratory failure with hypoxia Priority: Secondary Status: Chronic (5) Hypothyroidism Priority: Secondary Status: Chronic Qualifiers: Hypothyroidism type: unspecified Qualified Code(s): E03.9 - Hypothyroidism , unspecified (6) HTN (hypertension) Priority: Secondary Status: Chronic Qualifiers: Hypertension type: unspecified Qualified Code(s): I10 - Essential (primary ) hypertension (7) Paroxysmal a-fib Priority: Secondary Status: Chronic (8) Diabetes mellitus Priority: Secondary Status: Chronic Qualifiers: Diabetes mellitus type: type 2 Diabetes mellitus complication status: with unspecified complications Diabetes mellitus usp insulin use: without usp use Qualified Code(s): E11.8 - Type 2 diabetes mellitus with unspecified complications - Discharge Medications Prescriptions: Amoxicillin/Clavulanate [Augmentin] 875 mg PO BIDWM #6 tablet Nicotine Patch [Nicoderm] 14 mg TD DAILY #30 patch.td24 OxyCODONE Immed Rel [Roxicodone 15 MG] 15 mg PO Q6H PRN #20 tablet PRN Reason: Pain Home Medications: Budesonide/Formoterol 160/4.5 [Symbicort 160/4.5] 2 puff IH BIDR #1 inhaler [Rx] Albuterol Sulfate [Proair Hfa] 2 puff IH Q4H PRN 03/15/17 [History] Atorvastatin [Lipitor] 40 mg PO HS 03/15/17 [History] Citalopram Hydrobromide [Celexa] 40 mg PO DAILY 03/15/17 [History] Ergocalciferol (VITAMIN D2) [Vitamin D2] 50,000 unit PO TU 03/15/17 [History] Famotidine [Heartburn Prevention] 20 mg PO HS 03/15/17 [History] LORazepam [Ativan] 0.25 - 0.5 mg PO BID PRN 03/15/17 [History] Levothyroxine [Synthroid] 150 mcg PO QAM 03/15/17 [History] Lisinopril [Zestril] 10 mg PO DAILY 03/15/17 [History] Metoprolol XL (24 HR) Succ [Toprol Xl] 25 mg PO DAILY 03/15/17 [History] Mupirocin Calcium [Bactroban Nasal] 1 gm NS DAILY 03/15/17 [History] Omeprazole [PriLOSEC] 40 mg PO DAILY 03/15/17 [History] Oxygen 3 l NS CONT 03/15/17 [History] Polyethylene Glycol 3350 [MiraLAX] 17 gm PO DAILY 03/15/17 [History] hydrALAZINE [HydrALAZINE] 25 mg PO Q8HR 03/15/17 [History] Albuterol Neb [Proventil Neb] 2.5 mg IH Q4HR PRN #20 inhsol 03/22/17 [Rx] Amoxicillin/Clavulanate [Augmentin] 875 mg PO BIDWM #6 tablet 03/22/17 [Rx] Furosemide [Lasix] 20 mg PO DAILY tablet 03/22/17 [Rx] Nicotine Patch [Nicoderm] 14 mg TD DAILY #30 patch.td24 03/22/17 [Rx] OxyCODONE Immed Rel [Roxicodone 15 MG] 15 mg PO Q6H PRN #20 tablet 03/22/17 [Rx] metFORMIN [Glucophage] 500 mg PO BIDWM tablet 03/22/17 [Rx] predniSONE [PredniSONE] 40 mg PO DAILY tablet 03/22/17 [Rx] Allergies/Adverse Reactions: 3 Allergy/AdvReac Type Severity Reaction Status Date / Time aspirin Allergy Nausea Verified 03/15/17 17:45 ibuprofen Allergy Nausea Verified 03/15/17 17:45 Date of admission: 03/16/17 01:30 Primary care physician: Michelet Lal MD Consults: 03/16/17 05:11 Consult to Physical Therapy [CONS] Routine Comment: Evaluate, develop and implement POC Reason for Consult: falls OT [Consult to Occupational Therapy] [CONS] Routine Comment: Evaluate, develop and implement POC Reason for Consult: falls 03/18/17 11:00 Consult to [employer] [CONS] Routine Reason for SW Consult: ECF placement - Patient Status Disposition: Transfer SNF Condition: Good Overall status at discharge: patient is back to baseline - Discharge Instructions Follow Up With: Michelet Lal MD [Primary Care Provider] - - Diet and Activity Activity: as per physical therapy, increase activity as tolerated Diet: diabetic diet, low salt diet Hospital course: Ms. Shook is a 71 year old female with a PMH of oxygen dependent COPD, CHF, paroxysmal A-fib, TIA, and tobacco dependence that was recently treated for PNA at multiple facilities in the past 1.5 weeks that was sent to the ED by her PCP for failure of outpatient management. She was admitted for PNA treatment at [facility] form 03/04-03/06, at [facility] from 03/10-03/13, and evaluated and discharged at [facility]. Pt was aditted here and started her on empirical abx Zosyn and high dose IV steroids. Her symptoms started improving slowly. Eventually we switched abx to PO agumentin and also switched to PO steroids and started tapering them down slowly. She also has mild diastlic CHF eacerbation which improved wit Lasix.. D/ c her HCTZ due to severe electrolyte abnormalities. Also she had borderline DM2 , so started her on Po metformin . She stated she is almost back to baseline today. She was evaluated by PT / OT who suggested for short term rehab at SNF so will d/c her to SNF today in stable condition. Waiting on insurance prior authorization. - Time Spent with Patient Total time spent providing and/or coordinating discharge services: - Constitutional Vitals: Temp Pulse Resp BP Pulse Ox 98.6 F 63 17 106/97 96 03/22/17 10:23 03/22/17 10:23 03/22/17 10:43 03/22/17 10:23 03/22/17 10:43 General appearance: Present: cooperative, A&O X 3, answers questions appropriately - Head Head exam: Present: atraumatic, normal inspection - Respiratory Respiratory exam: Present: decreased breath sounds, wheezes (moderate). Absent : rales, respiratory distress, rhonchi - Cardiovascular Cardiovascular exam: Present: RRR, +S1, +S2. Absent: systolic murmur - GI/Abdominal GI/Abdominal exam: Present: normal bowel sounds, soft. Absent: rebound, rigid, tenderness - Extremities Exam Extremities exam: Absent: calf tenderness, pedal edema, tenderness - Neurological Exam Neurological exam: Present: alert, oriented X3 - Psychiatric Psychiatric exam: Present: normal affect, normal mood
--- NOTE | 2017-03-22 11:26 | Physician Discharge Referral ---
ExtendedCare Referral Info Transfer To: ECF Provider in Charge after Transfer: PCP Institutional Level of Care: Skilled - Diagnosis (1) Hospital acquired PNA Status: Acute (2) Acute exacerbation of chronic obstructive pulmonary disease (COPD) Status: Acute (3) Tobacco abuse Status: Chronic (4) Chronic respiratory failure with hypoxia Status: Chronic (5) Hypothyroidism Status: Chronic (6) HTN (hypertension) Status: Chronic (7) Paroxysmal a-fib Status: Chronic (8) Diabetes mellitus Status: Chronic - Transfer Medications Prescriptions: Amoxicillin/Clavulanate [Augmentin] 875 mg PO BIDWM #6 tablet Nicotine Patch [Nicoderm] 14 mg TD DAILY #30 patch.td24 OxyCODONE Immed Rel [Roxicodone 15 MG] 15 mg PO Q6H PRN #20 tablet PRN Reason: Pain Home Medications: Budesonide/Formoterol 160/4.5 [Symbicort 160/4.5] 2 puff IH BIDR #1 inhaler [Rx] Albuterol Sulfate [Proair Hfa] 2 puff IH Q4H PRN 03/15/17 [History] Atorvastatin [Lipitor] 40 mg PO HS 03/15/17 [History] Citalopram Hydrobromide [Celexa] 40 mg PO DAILY 03/15/17 [History] Ergocalciferol (VITAMIN D2) [Vitamin D2] 50,000 unit PO TU 03/15/17 [History] Famotidine [Heartburn Prevention] 20 mg PO HS 03/15/17 [History] LORazepam [Ativan] 0.25 - 0.5 mg PO BID PRN 03/15/17 [History] Levothyroxine [Synthroid] 150 mcg PO QAM 03/15/17 [History] Lisinopril [Zestril] 10 mg PO DAILY 03/15/17 [History] Metoprolol XL (24 HR) Succ [Toprol Xl] 25 mg PO DAILY 03/15/17 [History] Mupirocin Calcium [Bactroban Nasal] 1 gm NS DAILY 03/15/17 [History] Omeprazole [PriLOSEC] 40 mg PO DAILY 03/15/17 [History] Oxygen 3 l NS CONT 03/15/17 [History] Polyethylene Glycol 3350 [MiraLAX] 17 gm PO DAILY 03/15/17 [History] hydrALAZINE [HydrALAZINE] 25 mg PO Q8HR 03/15/17 [History] Albuterol Neb [Proventil Neb] 2.5 mg IH Q4HR PRN #20 inhsol 03/22/17 [Rx] Amoxicillin/Clavulanate [Augmentin] 875 mg PO BIDWM #6 tablet 03/22/17 [Rx] Furosemide [Lasix] 20 mg PO DAILY tablet 03/22/17 [Rx] Nicotine Patch [Nicoderm] 14 mg TD DAILY #30 patch.td24 03/22/17 [Rx] OxyCODONE Immed Rel [Roxicodone 15 MG] 15 mg PO Q6H PRN #20 tablet 03/22/17 [Rx] metFORMIN [Glucophage] 500 mg PO BIDWM tablet 03/22/17 [Rx] predniSONE [PredniSONE] 40 mg PO DAILY tablet 03/22/17 [Rx] Allergies/Adverse Reactions: 3 Allergy/AdvReac Type Severity Reaction Status Date / Time aspirin Allergy Nausea Verified 03/15/17 17:45 ibuprofen Allergy Nausea Verified 03/15/17 17:45 - Respiratory Orders Smoking Cessation: Smoking cessation has been advised. For more information, call the [place] Tobacco Quit Line at 0-980-AZQLNOW. CERTIFICATION: I certify that the transfer of the above named patient to an Extended Care Facility is necessary for the continuing treatment of the diagnosis listed. The above information is true and accurate reflection of patient's current condition. Confidential - Redisclosure prohibited without a patient's written consent.
[2017-03-22 14:47] VITALS: BP 95/47
== END 2017-03-22 16:30 | DRG 291 ==
LOC: EMEROO 17:04 → 3ANU 17:04 → SUATTDRO 03-16 01:30
PROVIDERS: ADMIT Hospitalist; ATTEND Family Medicine